=== PATIENT | female | born 1940 | race Caucasian/White ===

== ENCOUNTER 2017-05-07 15:35 | Emergency (ER) | payer MEDICARE, BC ==
[~2017-05-07] VITALS: Ht 170.2 cm; Wt 64.6 kg
[~2017-05-07 15:35] MED LIST: ALBUTEROL2.5 MG/3 M INH; AMLODIPINE BESY10 MG; AMLODIPINE BESY10 MG PO; BROVANA15 MCG/2 M INH; CALCIUM CARB 51 EACH PO; CARVEDILOL25 MG PO; CARVEDILOL6.25 MG PO; COZAAR50 MG PO; CYCLOBENZAPRINE10 MG PO; DUONEB 0.5 MG-33 ML IH; DUONEB 0.5 MG-33 ML INH; FERROUSUL325 MG PO; FLUOXETINE HCL20 MG PO; FUROSEMIDE40 MG PO; GLUCOPHAGE1000 MG PO; GLUCOPHAGE500 MG PO; HUMALOG100 UNIT/2 SUB-Q; HYDROCHLOROTHIA25 MG PO; HYDROCODON-ACE1 EA10 PO; KEPPRA1000 MG; KEPPRA750 MG PO; LANTUS SOL100 UNIT/1 SQ; LANTUS SOL100 UNIT/1 SUB-Q; LASIX80 MG PO; LEVAQUIN500 MG PO; LEVETIRACETAM1000 MG PO; LEVETIRACETAM750 MG PO; LIPITOR40 MG PO; LISINOPRIL20 MG PO; MAGNESIUM250 M1 PO; MAGNESIUM400 MG PO; MAGOX 400400 MG; METFORMIN HCL1000 MG PO; METOLAZONE10 MG PO; MORPHINE SULFAT15 M1 PO; NABUMETONE750 MG; NABUMETONE750 MG PO; NICOTINE PATCH1 EACH TD; NORCO 5-325 TA1 EACH PO; OMEPRAZOLE20 MG PO; OXYCODONE-ACET1 EAC1 PO; PERCOCET 5-3251 EACH PO; PREDNISONE10 MG PO; PREDNISONE20 MG PO; PROAIR HFA8.5 GM INH; PROMETHAZI6.25 MG/5 PO; PROMETHAZINE HC25 M1 PO; PULMICORT FLE180 MCG INH; PULMICORT0.5 MG/2 M INH; QVAR7.3 G1 IH; QVAR7.3 G1 INH; REQUIP0.25 MG PO; REQUIP1 MG PO; ROPINIROLE HCL1 MG PO; ROPINIROLE HCL5 MG PO; SPIRIVA18 MCG INH; VENTOLIN HFA18 GM INH; VITAMIN C500 M1 PO; VITAMIN D1000 UNI1 PO; VITAMIN D350000 UNIT PO; ZESTORETIC 20-251 EA; ZOCOR80 MG PO; ZOLPIDEM TARTRAT5 MG PO
[2017-05-07] MEDS ORDERED: METHYLPREDNISOLO4 M1 PO (17:20)
[2017-05-07] MEDS ORDERED: KEFLEX500 MG PO (17:20)
== END 2017-05-07 17:41 | disposition home or self-care (01) ==
LOC: ED 15:35
DX: R91.8 Other nonspecific abnormal finding of lung field (principal); J44.9 Chronic obstructive pulmonary disease, unspecified; E11.9 Type 2 diabetes mellitus without complications; F17.200 Nicotine dependence, unspecified, uncomplicated; Z90.49 Acquired absence of other specified parts of digestive tract; Z88.8 Allergy status to other drugs, medicaments and biological substances; Z88.0 Allergy status to penicillin; Z88.2 Allergy status to sulfonamides; Z88.5 Allergy status to narcotic agent; Z79.899 Other long term (current) drug therapy; Z79.84 Long term (current) use of oral hypoglycemic drugs; Z79.52 Long term (current) use of systemic steroids; Z79.891 Long term (current) use of opiate analgesic
CPT/HCPCS: 71101; 99283

== ENCOUNTER 2017-05-16 09:18 | Inpatient (IN) | payer MEDICARE, BC ==
[~2017-05-16] VITALS: Ht 170.2 cm; Wt 57.1 kg
[~2017-05-16 09:18] MED LIST changes: +KEFLEX500 MG PO; +METHYLPREDNISOLO4 M1 PO
--- NOTE | 2017-05-16 11:58 | NUR ---
RN CLINTON REQUESTED MY ASSISTANCE, RETREIVED SOME JUICE FOR PT. SHE THANKED ME AND HER CAME IN RM, WE SHOOK HANDS. PT IS ALERT, AND DISAPPOINTED THAT SHE IS HERE AGAIN. GOOD VISIT, PT REQUESTED PRAYER. WILL FOLLOW NEEDED
--- NOTE | 2017-05-16 12:09 | NUR ---
PT HERE FROM ER, PT ALERT AND ORIENTED X4. PT DENIES PAIN, NAUSEA, AND SOB AT THIS TIME. PT ABLE TO ANSWER ALL QUESTIONS. PT TRANSFERS FROM GURNEY TO BED BY STAND AND PIVOT, WITH STAND BY ASSIST FROM NURSING STAFF. IV SITES INTACT, NO REDNESS OR SWELLING NOTED, PT DENIES PAIN AT EITHER SITE, BOTH SITES FLUSH EASILY. LAB IN ROOM TO DRAW BLOOD.
--- NOTE | 2017-05-16 12:55 | NUR ---
AT THE BEDSIDE.
--- NOTE | 2017-05-16 13:49 | NUR ---
CARDIZEM DRIP STARTED AT THIS TIME AT 5MG/HOUR PER DR. ORDERS.
--- NOTE | 2017-05-16 14:05 | NUR ---
PT SPOUSE AT THE BEDSIDE.
--- NOTE | 2017-05-16 14:30 | NUR ---
JEWELRY REPAIRER IN ROOM TAKING ULTRASOUND OF PT LEGS TO RULE OUT DVT.
--- NOTE | 2017-05-16 15:20 | NUR ---
PT UP AMBULATED TO TOILET WITH ONE PERSON STANDBY ASSIST. PT ABLE TO VOID 300 ML CONCENTRATED ANJU URINE. AMBULATED BACK TO BED. PT DENIES PAIN, NAUSEA, AND SOB AT THIS TIME.
--- NOTE | 2017-05-16 15:30 | NUR ---
Traackr TECH IN THE ROOM TAKING ECHO IMAGES AT THIS TIME.
--- NOTE | 2017-05-16 16:07 | NUR ---
PT LAYING IN BED LOOKING A MENU. PT HAS BEEN CALM, ALERT AND ORIENTED X4. PT DENIES PAIN, NAUSEA, AND SOB AT THIS TIME. PT HR REMAINS LABILE 110'S-130'S, PT DENIES FEELING DIZZY. BOTH IV SITES INTACT, NO REDNESS OR SWELLING NOTED, IV SITES FLUSH EASILY, PT DENIES PAIN AT EITHER SITE.
--- NOTE | 2017-05-16 17:09 | NUR ---
PT CONVERTED TO SINUS RHYTHM, DILTIAZEM DRIP TURNED OFF.
--- NOTE | 2017-05-16 17:17 | EKG ---
[facility] [address] [place] [address] Signed Atrial flutter with variable AV block Left axis deviation Nonspecific ST abnormality Abnormal ECG When compared with ECG of 25-FEB-2017 06:17, Atrial flutter has replaced Sinus rhythm QRS axis shifted left Confirmed by ELDON PATTON MD ([id number]) on 05/16/2017 5:17:43 PM Electronically Signed By: ELDON PATTON MD 05/16/17 1717 PATIENT NAME: BROOKLYNNDOROTEOSHANNON M Electrocardiogram DATE OF : 42 PHYSICIAN: ELDON PATTON MD REPORT #: [id number] REPORT IS CONFIDENTIAL AND NOT TO BE RELEASED WITHOUT AUTHORIZATION
--- NOTE | 2017-05-16 17:34 | NUR ---
CALLED FOR CAPILLARY BLOOD GLUCOSE LEVEL OF 491. GAVE VERBAL ORDER FOR 16 UNITS OF INSULIN. FOR CORRECTION.
--- NOTE | 2017-05-16 19:10 | NUR ---
BLADDER SCANNED PT FOR 297 ML, PT DENIES NEED TO VOID AT THIS TIME.
--- NOTE | 2017-05-16 20:01 | NUR ---
PT VERBALIZES PAIN 5/10, ARTHRITIC, CHRONIC, DOESN'T REQUIRE PAIN MEDICATION.
--- NOTE | 2017-05-16 20:18 | NUR ---
PT IS A/O, UP TO BR, STEADY BUT WEAK, NEEDS SBA. NO NOTED OBVIOUS MENTAL STATUS CHANGES. CARDIZED GTT OFF PER DAY SHIFT REPORT, VS WNL, DRY NON-PRODUCTIVE COUGH, FAMILY MEMBER IN ROOM HS LEFT. USES CALL LIGHT.
--- NOTE | 2017-05-16 22:05 | NUR ---
UP TO BR WITH NASAL CANNULA AT 3.5L, SPO2 DOWN TO 84%. VOIDED 100ML THEN BACK TO BED AND CPAP PLACED. SPO2 95%. HR REMAINS IN 80'S.
--- NOTE | 2017-05-16 22:40 | NUR ---
PT PREPARING TO SLEEP, ON BIPAP, O2SAT 97%, ACETAMINOPHEN EFFECTIVE, PT HAS RESTLESS PER PT, WRAPPED LEG IN WARM BLANKETS WHICH PT FINDS COMFORTING. PLANNING TO ASK TO BRING MEDS IN A.M.
--- NOTE | 2017-05-17 00:57 | NUR ---
PT ON 3.5 LPM NC, RT VISITED PT RECENTLY AND PT DIDN'T WANT BIPAP. A/O X4, DECREASED STIMULATION IN ROOM TO FACILITATE SLEEP. VS WNL, HR 70-80'S. AFEBRILE, PERFUSION WNL, USES CALL LIGHT, UP TO BR X3 VOID IN TOILET COLLECTION DEVICE. IVF INFUSING. LUNGS DIMINISHED.
--- NOTE | 2017-05-17 02:51 | NUR ---
PT ON NC, AWAKE AND HASN'T SLEPT MUCH, DOES NOT WANT BIPAP DUE TO MORE DIFFICULT TO SLEEP. PT TAKES A MEDICATION AT HOME FOR RESTLESS LEGS WHICH HER WILL BRING IN A.M. PER PT. NO ACUTE DISTRESS, BED ALARM DUE TO GETTING OOB WITH NUMEROUS CORDS.
--- NOTE | 2017-05-17 03:40 | NUR ---
PT OOB STANDING NUMEROUS TIMES, ATTEMPTS TO SLEEP, BED ALARM ON.
--- NOTE | 2017-05-17 05:53 | NUR ---
PT IN BED, CALL LIGHT IN REACH, DOES NOT USE THE CALL LIGHT ALL THE TIME, BED ALARM ON, NO ACUTE DISTRESS. VS WNL. DENIES PAIN.
--- NOTE | 2017-05-17 07:30 | NUR ---
PT AWAKE AND ALERT X2 THIS MORNING. PT KNOWS THE DATE AND HER NAME AND WHERE SHE IS. IS DISORIENTED TO WHAT SHE IS SUPPOST TO DO. REASURED PT THAT SHE NEEDS TO REST. PT BACK TO BED. CALL AND TALKED WITH HER ON THE PHONE, PT ABLE TO RELAX. BREAKFAST ORDERED FOR PT.
--- NOTE | 2017-05-17 07:58 | NUR ---
PT EATING BREAKFAST SITTING UP IN BED WATCHING TV. PT DENIES PAIN, NAUSEA, AND SOB. IV SITES INTACT, NO REDNESS OR SWELLING NOTED, BOTH SITES FLUSH EASILY, PT DENIES PAIN AT BOTH SITES. LUNGS SOUNDS EX WHEEZE NOTED IN RT LOBE, COARSE SOUNDS IN UPPER LOBES BILAT, FINE CRACKLES NOTED IN BILAT LOW LOBES.
--- NOTE | 2017-05-17 08:50 | NUR ---
SHAMPOO CAP APPLIED TO PT. WARM SOAPY WASH CLOTHS GIVEN TO PT TO WASH FACE, ARMS, UNDERARMS, AND CHEST. WASHED PT BACK AND LEGS. LOTION APPLIED TO ARMS AND LEGS. PT ABLE TO BRUSH HER OWN TEETH. GOWN CHANGED. PT CARMELITA WELL.
--- NOTE | 2017-05-17 09:15 | NUR ---
IV SITE IN RT AC DC'D DUE TO LEAKING. PT CARMELITA WELL, TIP OF CATH INTACT, PT DENIES PAIN AT SITE.
[2017-05-17] MEDS ORDERED: NORTRIPTYLINE H25 MG PO (09:31)
[2017-05-17] MEDS ORDERED: ROPINIROLE HCL1 MG PO (09:54)
[2017-05-17] MEDS ORDERED: REQUIP1 MG PO (09:58)
--- NOTE | 2017-05-17 10:27 | NUR ---
pt standing at bedside, states "is there a diswasher in this room, I need to do the dishes". reoriented pt to being in the hospital, pt reorients easily. pt back to bed with legs elevated, call light within reach, bed alarm is on.
--- NOTE | 2017-05-17 10:45 | NUR ---
pt up standing at the bedside again with bedalarm going off. pt states "I don't know, I think I need to go to the bathroom" pt up to commode. pt voided then got back to bed with assistance.
--- NOTE | 2017-05-17 11:40 | NUR ---
IV SITE INTACT, NO REDNESS OR SWELLING NOTED, PT DENIES PAIN WITH FLUSH.
--- NOTE | 2017-05-17 11:55 | NUR ---
RESP THERAPY IN THE ROOM WITH PT DOING PHYSIO THERAPY.
--- NOTE | 2017-05-17 12:55 | NUR ---
PT SITTING UP AT THE BEDSIDE EATING LUNCH. 5 UNITS INSULIN GIVEN FOR CBG OF 195.
--- NOTE | 2017-05-17 13:16 | NUR ---
NICHO FROM PHARMACY IN TO DISCUSS REQUIP MEDICATION WITH PT FROM PT PHARMACY RECORDS.
--- NOTE | 2017-05-17 13:18 | NUR ---
MED REC COMPLETE WITH MEDICATION REFILL LIST AND PATIENT INTERVIEW.
--- NOTE | 2017-05-17 13:41 | NUR ---
PT RESTING IN BED, KATE RIVERA HAD JUST REPOSITIONED HER AND HELPED HER RELAX SOME. PT EXPECTS TO BE HERE A FEW DAYS SHE SAID. SHE IS VERY PLEASANT, HER HAD BEEN BY TO CHECK ON HER AND SON IS TO BE BY SOON. PT MENTIONED THAT SHE DIDNOT SLEEP WELL, HOPES TO NAP TODAY. REQUESTED PRAYER, WILL CONTINUE TO FOLLOW
--- NOTE | 2017-05-17 14:10 | NUR ---
PT AMBULATED IN HALLS DOWN TO MED/SURG NURSES STATION. PT HAD FRONT WHEEL WALKER AND PORTABLE 02 AT 3L VIA NC. PT THEN BACK TO BED STATES "THAT WAS A GOOD WALK, MY LEGS ARE TIRED". PT TALKED ON THE PHONE WITH HER . PT SHOWED NO SIGNS OF SOB DURING AMBULATION.
--- NOTE | 2017-05-17 14:33 | NUR ---
PT STANDING IN ROOM WITH BED ALARM GOING OFF, PT STATES SHE IS IN HER KITCHEN LOOKING FOR GRAPES IN THE REFRIDGERATOR. PT ASSISTED BACK TO BED. ATTEMPT TO REORIENT. BEDALARM BACK ON.
--- NOTE | 2017-05-17 15:55 | NUR ---
IV SITE INTACT, NO REDNESS OR SWELLING NOTED, PT DENIES PAIN WITH FLUSH. PT CONFUSION IS SLOWLY INCREASING THIS AFTERNOON. TAKES MORE TIME TO REORIENT PT TO PLACE, EVENT, AND PEOPLE. PT IS POLITE AND COOPERATIVE, REPORTS INCREASED ANXIETY WITH CONFUSION. PT VITALS WNL.
--- NOTE | 2017-05-17 16:40 | NUR ---
PT STATES SHE WANTS TO GET OUT OF THE BED SO SHE CAN CLEAN THE KITCHEN AND GET DINNER JUANITO
--- NOTE | 2017-05-17 17:31 | NUR ---
pt is calling out for her Gregg. asks "where is he?" "why is he not here". reoriented pt to place, event, and care plan. pt able to stay oriented for shorter and shorter amount of time.
--- NOTE | 2017-05-17 17:40 | NUR ---
PT STATES "I JUST DON'T FEEL WELL", PT GIVEN 650 MG PO TYLENOL FOR GENERALIZED DISCOMFORT.
--- NOTE | 2017-05-17 17:50 | NUR ---
SPOUSE OF PT, LYDIA, REQUESTED TO NOT ALLOW PT TO CALL HIM TONIGHT, DUE TO REPEATED CALLS THIS AFTERNOON. PT CALLED HER APPROXIMATLY 5 TIMES OVER A 2 HOUR PERIOD BETWEEN [phone].
--- NOTE | 2017-05-17 18:06 | NUR ---
PT SPOUSE, LYDIA, IS NOW SITTING IN THE ROOM WITH THE PT.
--- NOTE | 2017-05-17 20:33 | NUR ---
AT SHIFT CHANGE PT REQUESTING TO GET OOB TO GET POPCORN "IT'S JUST OVER THERE". POINTS TO BR. EXPLAINED TO PATIENT THAT SHE IS IN THE HOSPITAL. UNABLE TO RE-ORIENT PT. WALKED PT TO DOOR OF ROOM AND SHOWED HALLWAY. INSISTENT THAT KITCHEN "JUST OUT THERE" POINTS OUT THE HOSPITAL WINDOW. PT DID AGREE TO GET BACK TO BED. PLACED BED ALARM ON PT. PT WITH NON-PRODUCTIVE LOOSE COUGH. REFUSES TO WEAR BIPAP. 02 ON 2L. REMINDED AND INSTRUCTED PT TO USE CALL LIGHT.
--- NOTE | 2017-05-17 20:57 | NUR ---
PT REMAINS CONFUSED. STATES "WHERE'S THE PHONE, I HEAR IT RINGING". TRYING TO GET OUT OF BED WITHOUT CALLING. UPDATED DR PATTON.
--- NOTE | 2017-05-17 21:02 | NUR ---
PT GIVEN 12.5MG SEROQUEL PO. PLACED PT ON BIPAP.
--- NOTE | 2017-05-17 21:45 | NUR ---
PT PULLED BIPAP OFF. PLACED ON 2L O2.
--- NOTE | 2017-05-17 22:30 | NUR ---
PT TRYING TO GET OOB. REQUESTING TO GO TO THE KITCHEN. BEGAN FIXING SHEETS AND BLANKETS ON BED. NOT RE-ORIENTABLE. PT AGREED TO GET BACK IN BED. RELUCTANTLY AGREED TO WEAR CPAP AGAIN. BED ALARM ON.
--- NOTE | 2017-05-17 23:12 | NUR ---
PT REMOVED BIPAP. GETS UP OOB REQUESTING HER CIGARETTES AND BILINGUAL SALES REPRESENTATIVE. ATTEMPTED TO REORIENT. PLACED ON NC 2L 02. REQUESTED 'LIVING ROOM' LIGHTS TO BE TURNED OFF. DIMMED NURSES STATION LIGHTS AND HALLWAY LIGHTS TO MAX LEVEL. PT BACK TO BED. VS TAKEN. BED ALARM ON.
--- NOTE | 2017-05-18 00:10 | NUR ---
PT OOB TO BR. VOIDED ONE MISSED VOID. REMAINS CONFUSED TO SITUATION/PLACE. ASSISTED BACK TO BED, BED ALARM ON.
--- NOTE | 2017-05-18 01:24 | NUR ---
PT GETTING OUT OF BED WITHOUT ASSISTANCE. AMBULATED TO BR TO VOID. BACK TO BED WITH BED ALARM ON.
--- NOTE | 2017-05-18 01:36 | NUR ---
PT UP TO BR, DOES NOT REMEMBER WHY, REFUSES TO WEAR BIPAP. 02 ON 3.5L NC PER RT.
--- NOTE | 2017-05-18 04:32 | NUR ---
PT SLEPT UNTIL NOW. GOT OOB TO BR TO VOID. BACK TO BED. NO NEEDS. SLEEPY, BUT IMPROVED DEMEANOR. REMAINS UNSTEADY ON FEET. BED ALARM ON.
--- NOTE | 2017-05-18 06:24 | NUR ---
PT REMAINS ASLEEP. LABS HELD AT THIS TIME.
--- NOTE | 2017-05-18 08:15 | NUR ---
IS AWAKE AND ALERT. ACCUCHECK 46, DR. PATTON AWARE. ORANGE JUICE GIVEN. ASSESSMENT DONE. TALKED WITH PATIENT ABOUT PLAN OF CARE FOR DAY, IS UNDERSTANDING. HAS LOOSE COUGH.
--- NOTE | 2017-05-18 09:00 | NUR ---
SITTING UP IN BED EATING BREAKFAST.
--- NOTE | 2017-05-18 10:59 | NUR ---
TOOKBREAKFAST WELL. AMBULATED TO BR WITH ASSIST, VOIDED SMALL AMOUNT URINE. SPONGE BATH GIVEN WHILE UP. BACK TO BED WITHOUT INCIDENT. IN ROOM.
--- NOTE | 2017-05-18 15:00 | NUR ---
RESTING. IS WITHOUT R/O OR C/O AT THIS TIME.
--- NOTE | 2017-05-18 15:44 | NUR ---
used walker to ambulated in hallway WITH ASSIST. TOLERATED WELL. DENIES SHORTNESS OF BREATH.
--- NOTE | 2017-05-18 16:10 | NUR ---
ASSESSMENT DONE. NO CHANGES. ENC USE OF I.S.
--- NOTE | 2017-05-18 17:29 | NUR ---
SITTING UP EATING DINNER.
--- NOTE | 2017-05-18 18:19 | NUR ---
C/O RESTESS LEGS. REQUESTING MEDICATION FOR THIS. TOLD PATIENT THE MEDICATION WAS DISCONTINUED. AMBULATED IN HALLWAY WITH O2, WALKER, NURSE WITH PATIENT. TOLERATED AMBULATION WELL. STATES THIS HELPED RESTLESS LEGS. IN ROOM.
--- NOTE | 2017-05-18 18:29 | NUR ---
C/O OF RESTLESS LEGS. ASKING ME TO CALL MD FOR MEDICATION. MD NOTIFIED. MD TO ORDER GABAPENTIN.
--- NOTE | 2017-05-18 18:50 | NUR ---
UP TO BR TO VOID. STATES SHE DOES NOT FEEL RIGHT. BP-129/57. ACCUCHECK-327. TYLENOL 650 MG PO, GABAPENTIN 100 MG IV GIVEN.
--- NOTE | 2017-05-18 19:07 | NUR ---
REPORT TO NEXT SHIFT.
--- NOTE | 2017-05-18 19:36 | NUR ---
REPORT RECIEVED FROM DAYSHIFT RN. PT UP AMBULATING IN ROOM FOR RESTLESS LEGS. HELPED PT RELAX AFTER. PT ALERT AND ORIENTED. DOES NOT RECALL EVENTS OF LAST NIGHT. ASSISTED BACK TO BED. BED ALARM ON FOR SAFETY.
--- NOTE | 2017-05-18 22:50 | NUR ---
PT UNABLE TO SLEEP. REQUESTING MEDICATION TO HELP. DR PATTON NOTIFIED. 1MG MELATONIN GIVEN PO. PT REMAINS ALERT AND ORIENTED.
--- NOTE | 2017-05-18 23:56 | NUR ---
PT STILL UNABLE TO SLEEP. ASSESSMENT COMPLETED. OFFERED PUDDING.
--- NOTE | 2017-05-19 02:20 | NUR ---
PT UP TO BR TO VOID. USED CALL LIGHT FOR ASSISTANCE. REMAINS ORIENTED. REPORTS STILL NOT SLEEPING, HOWEVER.
--- NOTE | 2017-05-19 04:30 | NUR ---
PT ASLEEP. O2 ON. NO S/S OF DISTRESS.
--- NOTE | 2017-05-19 06:49 | NUR ---
PT UP WITH FWW TO VOID. NO OTHER NEEDS. USING CALL LIGHT APPROPRIATELY.
--- NOTE | 2017-05-19 08:30 | NUR ---
AWAKE ASSESSMENT DONE. DENIES PAIN. STATES SLEPT VERY POOR. ASKING ABOUT WHEN SHE WILL BE ABLE TO GO HOME. HAS LOOSE NON-PRODUCTIVE COUGH. ROUTINE MEDS GIVEN. SITTING UP IN BED FOR BREAKFAST. ACCUCHECK THIS AM-180. NOVOLOG 5 UNITS SQ GIVEN.
--- NOTE | 2017-05-19 09:30 | NUR ---
DR. PATTON HERE TO SEE PATIENT. ORDERS RECIEVED. PATIENT IS W/O C/O.
--- NOTE | 2017-05-19 10:52 | NUR ---
UP TO BR FREQUENTLY. IS STABLE ON FEET.
--- NOTE | 2017-05-19 12:00 | NUR ---
ASSESSMENT UNCHANGED. AMBULATED IN HALLWAY WITH PHYS THERAPY. WILL BE TRANSFERRED TO MEDICAL FLOOR THIS AFTERNOON.
--- NOTE | 2017-05-19 14:40 | NUR ---
REPORT TO MED-SURG.
--- NOTE | 2017-05-19 14:46 | NUR ---
TO MED-SURG VIA CHAIR.
--- NOTE | 2017-05-19 15:07 | NUR ---
PT TRANSFERED FROM CCU TO ROOM 121 VIA RECLINER, ACCOMPANIED BY LEYDI Rhodes, NURSING VP DIRECTOR OF CREATIVE STRATEGY. ARRIVED TO ROOM 121 AT 1443. PT ALERT, ORIENTED TO SELF, DISORIENTED TO DATE, NAME OF CITY, NAME OF HOSPITAL. REORIENTED PT TO DATE, CITY, AND HOSPITAL. ORIENTED PT TO ROOM, AND FLOOR. PT REQUESTED TO GET INTO BED FROM RECLINER, ASSISTED PT TO TRANSFER WITH 1 PERSON ASSIST. PT DENIED PAIN, DENIED NAUSEA. IS CURRENTLY WATCHING TV.
--- NOTE | 2017-05-19 16:38 | NUR ---
NOTIFIED DR. PATTON THAT PT'S BG IS 397 VIA TELEPHONE, DR. PATTON VERBALIZED AWARENESS. NO NEW ORDERS AT THIS TIME.
--- NOTE | 2017-05-19 18:16 | NUR ---
PT TRANSFERED FROM CCU TO ROOM 121 THIS AFTERNOON. PT IS ALERT, ORIENTED TO SELF, ORIENTED TO SURROUNDINGS AND EVENTS. DISORIENTED TO CITY, NAME OF HOSPITAL. CALLS APROPRIATELY. IS ON 3.5L O VIA NC, WHICH IS HER BASELINE LEVEL OF OXYGEN AT HOME. IS ON A 2000 ML FLUID RESTRICTION. APETITE GOOD. PER [facility] RN REPORT, PT HAD 2 BMs THIS SHIFT PRIOR TO TRANSFER TO FLOOR. PT IS SALINE LOCKED. STARTING COUMADIN THIS EVENING. IS ON TELE # 7, IN NSR, WITH SOME PACs. HAS 1+ TO 2+ EDEMA TO LOWER LEGS AND FEET. 1 PERSON ASSIST WITH TRANSFERS. HAS DENIED PAIN OR DISCOMFORT.
--- NOTE | 2017-05-19 19:15 | NUR ---
RECEIVED REPORT FROM DAY SHIFT RN. PATIENT IS RESTING IN BED WATCHING TV. PATIENT DENIES ANY NEEDS AT THIS TIME. CALL LIGHT IN REACH.
--- NOTE | 2017-05-19 20:30 | NUR ---
PATIENT ASSISTED TO THE RESTROOM. PATIENT IS SBA. PATIENT IS BACK IN BED RESTING. BED ALARM IS ON FOR SAFETY PATIENT IS FORGETFUL AT TIMES. CALL LIGHT IN REACH.
--- NOTE | 2017-05-19 22:23 | NUR ---
PATIENT ASSESMENT COMPLETED. PATIENT DENIES ANY PAIN. PATIENT DENIES ANY SOB. PATIENT IS ON 3.5L VIA NC THIS IS CHRONIC FOR THE PATIENT. PATIENT IS SL AND IV FLUSHES WELL. PATIENT IS ON TELE #7, IRREGULAR RHYTHM, HR 69. PATIENT REFUSES TO WEAR CPAP. PATIENT DENIES ANY FURTHER NEEDS AT THIS TIME. CALL LIGHT IN REACH.
--- NOTE | 2017-05-19 23:28 | NUR ---
PATIENTS BED ALARM ALERTED STAFF THAT PATIENT WAS EXITING THE BED. WHEN THE ROOM WAS ENTERED PATIENT REQUESTED COOKIES FROM THE [facility]. PATIENT REPORIENTED TO SURROUNDINGS AND EVENT. PATIENT WAS EASILY REORINETED. PATIENT DENIES ANY NEEDS. PATIENT ASSISTED BACK INTO BED. PATIENT STATED " I JUST CANT SLEEP" PATIENT OFFERED INTERVENTIONS. PATIENT DENIED ALL INTERVENTIONS SUCJ TEA, WARM BLANKET... PATIENT STATED "I AM JUST GONNA WATCH TV" PATIENT DENIES ANY FURTHER NEEDS. PATIENTS CALL LIGHT IN REACH. BED ALARM PLACED BACK ON FOR SAFETY.
--- NOTE | 2017-05-20 00:10 | NUR ---
PATIENTS BED ALARM ALERTED STAFF THAT PATIENT WAS EXITING THE BED. PATIENT IS TRYING TO GET UP. PATIENT GIVEN FWW. PATIENT TRYING TO LEAVE ROOM TO "FIND THE BREAD BOX" PATIENT IS CONFUSED. PATIENT REORIENTED TO SURROUNDINGS AND EVENT. PATIENT IS NOW GETTING BACK INTO BED. PATIENT DENIES ANY NEEDS. PATIENTS BED ALARM PACED ON FOR SAFETY. CALL LIGHT IN REACH.
--- NOTE | 2017-05-20 01:22 | NUR ---
PATIENT IS RESTING INBED WITH EYES CLOSED, RR 17. TELE $7 HR 66
--- NOTE | 2017-05-20 02:49 | NUR ---
PATIENT HAS A DRY COUGH. PATIENT GIVEN SIPS OF WATER. PATIENT DENIES ANY NEEDS AT THIS TIME. CALL LIGHT IN REACH. AND BED ALARM IS ON FOR SAFETY.
--- NOTE | 2017-05-20 04:23 | NUR ---
PATIENT IS RESTING IN BED WITH EYES CLOSED. PATIENT REMAINS ON TELE #9, IRREGULAR RHYTHM, HR IN THE 80'S.
--- NOTE | 2017-05-20 05:57 | NUR ---
PATIENT RESTED WELL FOR THE MAJORITY OF THE SHIFT. PATIENT IS ON A CARDIAC DIET W/2000 ML FLUID RESTRICTION. PATIENT IS TOLERATING DIET WELL. PATIENT IS A SBA W/FWW AND DOES WELL WITH AMBULATION. PATIENT IS SL AND IV FLUSHES WELL. PATIENT IS ON TELE #7, IRREGULAR RHYTHM, HR IN THE 70'S. PATIENT IS ON 3.5L VIA NC. PATIENT REFUSED CPAP. PATIENT IS CONFUSED AT TIMES AND REQUIRES REORIENTATION. PATIENTS BED ALARM HAS REMAINED ON FOR SAFETY. PATIENT USES CALL LIGHT RARELY.
--- NOTE | 2017-05-20 06:44 | NUR ---
PATIENT ASSISTED TO THE RESTROOM. PATIENT IS A SBA W/FWW. PATIENTTOELRATED AMBUALTION WELL. PATIENT IS NOW BACK IN BED RESTING. BED ALARM IS ON FOR SAFETY. PATIENT REMAINS ON TELE #7. PATIENT DENIES ANY NEEDS AT THIS TIME. VITALS AND DAILY WEIGHTS TAKEN AND RECORDED. CALL LIGHT IN REACH.
--- NOTE | 2017-05-20 07:48 | NUR ---
PT ASLEEP UPON ENTERING ROOM. AWOKE EASILY TO VOICE. DENIES PAIN, NAUSEA, OR DIFFICULTY BREATHING. ALERT AND ORIENTED THIS AM. SL FLUSHES WELL. PT ON 3LNC SATTING 93%. ON TELE #7 CURRENTLY IN SR, HR 66. CALL LIGHT WITHIN REACH.
--- NOTE | 2017-05-20 07:55 | NUR ---
PATIENT SITTING UP IN BED WHILE GETTING A NEB TREATMENT. BREAKFAST HAS BEEN ORDERED. NO OTHER NEEDS AT THIS TIME.
--- NOTE | 2017-05-20 08:50 | NUR ---
PT SITTING UP AT EDGE OF BED EATING BREAKFAST. DENIES NEEDS OR CONCERNS AT THIS TIME. CALL LIGHT WITHIN REACH.
--- NOTE | 2017-05-20 09:59 | NUR ---
PATIENT REFUSED SHOWER AT THIS TIME. SANTHOSH AND ORAL CARE DONE. CHANGED UNDERWEAR AND LINENS. CALL BUTTON IN REACH NO OTHER NEEDS AT THIS TIME
--- NOTE | 2017-05-20 12:57 | NUR ---
PT ATE ALL OF LUNCH, CARMELITA WELL. DENIES NEEDS OR CONCERNS AT THIS . CALL LIGHT WITHIN REACH.
--- NOTE | 2017-05-20 14:39 | NUR ---
PT CALLED FOR ASSISTANCE TO RESTROOM. SBA WITH WALKER. BACK TO BED WITH MINIMAL ASSIST. CALL LIGHT WITHIN REACH. VS TAKEN, STABLE. SITTING UP IN BED AWAKE. NO APPARENT DISTRESS.
--- NOTE | 2017-05-20 15:00 | NUR ---
PATIENT STILL REFUSED SHOWER.
--- NOTE | 2017-05-20 16:38 | NUR ---
PT RESTING IN BED WATCHING TV. HAD COUGHING FIT, SOUNDED MOIST. PT DENIED ANY SPUTUM PRODUCTION. SCHEDULED BLOOD GLUCOSE CHECK COMPLETED. CALL LIGHT WITHIN REACH.
--- NOTE | 2017-05-20 19:33 | NUR ---
PT ASSESSMENT COMPLETE. PT DENIES ANY PAIN, N/V, SOB. PT ON 3.5 LPM O2 VIA NASAL CANNULA-CHRONIC. PT UP TO BATHROOM WITH SBA, TOLERATES AMBULATION WELL. PT VOIDING WITHOUT DIFFICULTY. PT HAS +1-2 EDEMA TO LEFT LOWER EXTREMITY, TRACE EDEMA TO RIGHT, PT STATES THIS IS NORMAL. PT NOW RESTING IN BED. BED ALARM IN PLACE. CALL LIGHT WITHIN REACH. PT DENIES ANY FURTHER NEEDS AT THIS TIME.
--- NOTE | 2017-05-20 22:30 | NUR ---
PT UP SEVERAL TIMES OVER LAST COUPLE HOURS, PT CONFUSED BUT EASILY REORIENTED. BED ALARM GOES OFF PT DOES NOT USE CALL LIGHT WHEN GETTING OUT BED, RE-EDUCATED PT. PT STATES FEELING "FIDGETY" AND RESTLESS. PT AMBULATED TO BATHROOM, VOIDING WELL. PT BACK IN BED. BED ALARM IN PLACE. CALL LIGHT WITHIN REACH. PT DENIES ANY FURTHER NEEDS AT THIS TIME.
--- NOTE | 2017-05-21 01:34 | NUR ---
PT SLEEPING, RR EVEN AND UNLABORED. PT APPEARS COMFORTABLE AT THIS TIME. BED ALARM IN PLACE. PT ON 3.5 LPM O2 VIA NASAL CANNULA. CALL LIGHT WITHIN REACH.
--- NOTE | 2017-05-21 03:05 | NUR ---
PT RESTING IN BED WITH EYES CLOSED. RESPIRATIONS EVEN AND UNLABORED. PT APPEARS TO BE SLEEPING. PT NOT DISTURBED FOR 0200 ASSESSMENT.
--- NOTE | 2017-05-21 04:49 | NUR ---
PT UP TO USE THE BATHROOM, OUT OF BED WITHOUT ASSISTANCE. PT REMAINS IMPULSIVE. BEDALARM IN PLACE. PT DENIES PAIN OR SOB. STATES THAT SHE IS THIRSTY. JUICE PROVIDED. STANDING DAILY WEIGHT OBTAINED. PT DENIES OTHER NEEDS. CALL LIGHT WITHIN REACH.
--- NOTE | 2017-05-21 06:13 | NUR ---
PT RESTING WELL THIS SHIFT. PT REMAINS CONFUSED AT TIMES, IMPULSIVE, BED ALARM IN PLACE. O2 @ 3.5 LPM. CARDIAC DIET, 2000 ML FLUID RESTRICTION. SBA WITH FWW. IV SL.
--- NOTE | 2017-05-21 07:42 | NUR ---
BEDSIDE REPORT. PT A/O X4, SHE REPORTS NO COMPLAINTS, PT REPORTS THAT THE PLAN FOR THE DAY IS TO DISCHARGE HOME.
--- NOTE | 2017-05-21 10:13 | NUR ---
PT UP AMBULATING IN [place] AT THIS TIME WITH STAFF
[2017-05-21] MEDS ORDERED: NICOTINE PATCH1 EA TD (11:57)
[2017-05-21] MEDS ORDERED: NICORETTE4 M2 BUCCAL (11:57)
[2017-05-21] MEDS ORDERED: WARFARIN SODIU2.5 MG PO (11:58)
[2017-05-21] MEDS ORDERED: DILTIAZEM 24HR120 MG PO (12:00)
[2017-05-21] MEDS ORDERED: TOPROL XL200 MG PO (12:00)
[2017-05-21] MEDS ORDERED: GLIPIZIDE5 MG PO ×2 (12:01→12:10)
[2017-05-21] MEDS ORDERED: POTASSIUM CHLO20 ME2 PO (12:02)
[2017-05-21] MEDS ORDERED: PULMICORT0.5 MG/2 M INH (12:04)
[2017-05-21] MEDS ORDERED: BROVANA15 MCG/2 M INH (12:04)
--- NOTE | 2017-05-21 13:20 | NUR ---
DISCHARGE EDUCATIONS PROVIDED TO PT AND PT SPOUSE IN REGARDS TO MEDICATION NEXT DOSE LAST DOSE. NEW MEDICATIONS. NICHO FROM PHARMACY INTO SEE PT NOW FOR MEDICATIONS COUNCELING. ALSO INFORMATION AND CHART FOR PT TO TRACK DAILY WEIGHT AND V/S. FOLLOW UP APPOINTMENT AND TO HAVE BLOOD DRAWN IN AM OF THAT DAY TO TRACK COUMADIN. SIGNS AND SYMPTOMS TO WATCH FOR AND MONITOR AND WHEN TO SEEK MEDICAL ATTENTION. DIET EDCUATION, ADA AND LOW SALT, MONITORING WATER/FLUID INTAKE DAILY. I.V. SITE REMOVED WNL TIP INTACT.
--- NOTE | 2017-05-21 14:04 | NUR ---
PT DRESSED, LAYING ON BED WAITING FOR DC. SHE WAS CHEERFUL AND THANKFUL FOR THE CARE SHE HAS RECEIVED. HER LYDIA WAS ON HIS WAY TO TAKE HER HOME. LYDIA ARRIVED, AND HAD A PLEASANT VISIT WITH BOTH. PT REQUESTED PRAYER, WILL FOLLOW NEEDED
--- NOTE | 2017-05-22 10:17 | NUR ---
FAXED CHART NOTES TO [facility] TO INCLUDE FACESHEET, ORDER, 1ST PROG NOTE (NO H AND P), DC SUMMARY, AND DC PACKET.
== END 2017-05-21 13:45 | disposition home or self-care (01) | DRG 190 ==
LOC: ED 09:18 → CCU 11:41 → MS 05-19 14:43
PROVIDERS: ADMIT Pediatrics Pediatric Critical Care Medicine
DX: J44.0 Chronic obstructive pulmonary disease with (acute) lower respiratory infection (principal); J18.9 Pneumonia, unspecified organism; G93.41 Metabolic encephalopathy; I50.33 Acute on chronic diastolic (congestive) heart failure; J96.11 Chronic respiratory failure with hypoxia; J96.12 Chronic respiratory failure with hypercapnia; I48.92 Unspecified atrial flutter; I48.0 Paroxysmal atrial fibrillation; J44.1 Chronic obstructive pulmonary disease with (acute) exacerbation; I11.0 Hypertensive heart disease with heart failure; E83.42 Hypomagnesemia; E11.65 Type 2 diabetes mellitus with hyperglycemia; G40.909 Epilepsy, unspecified, not intractable, without status epilepticus; E78.5 Hyperlipidemia, unspecified; F39 Unspecified mood [affective] disorder; F17.210 Nicotine dependence, cigarettes, uncomplicated; Z88.0 Allergy status to penicillin; Z88.2 Allergy status to sulfonamides; Z79.84 Long term (current) use of oral hypoglycemic drugs
CPT/HCPCS: 36415; 36600; 71010; 80048; 80053; 80069; 82607; 82728; 82746; 82803; 83036; 83540; 83605; 83735; 83880; 84100; 84466; 84484; 85025; 85610; 85730; 87040; 93005; 93010; 93306; 93970; 94640; 94660; 94667; 94668; 94760; 97161; J1160; J1650; J1956; J2930; J3475; J7040; J7512

== ENCOUNTER 2017-06-10 16:23 | Emergency (ER) | payer MEDICARE, BC ==
[~2017-06-10] VITALS: Ht 170.2 cm; Wt 57.1 kg
[~2017-06-10 16:23] MED LIST changes: +DILTIAZEM 24HR120 MG PO; +GLIPIZIDE5 MG PO; +NICORETTE4 M2 BUCCAL; +NICOTINE PATCH1 EA TD; +NORTRIPTYLINE H25 MG PO; +POTASSIUM CHLO20 ME2 PO; +TOPROL XL200 MG PO; +WARFARIN SODIU2.5 MG PO
[2017-06-10] MEDS ORDERED: PERCOCET 5-3251 EACH PO (16:43)
[2017-06-10] MEDS ORDERED: METHYLPREDNISOLO4 M1 PO (17:15)
[2017-06-10] MEDS ORDERED: KETOROLAC TROME10 MG PO (18:07)
== END 2017-06-10 17:37 | disposition home or self-care (01) ==
LOC: ED 16:23
DX: S72.114A Nondisplaced fracture of greater trochanter of right femur, initial encounter for closed fracture (principal); J44.9 Chronic obstructive pulmonary disease, unspecified; E11.9 Type 2 diabetes mellitus without complications; F17.200 Nicotine dependence, unspecified, uncomplicated; Z90.49 Acquired absence of other specified parts of digestive tract; Z88.0 Allergy status to penicillin; Z88.1 Allergy status to other antibiotic agents; Z88.2 Allergy status to sulfonamides; Z88.5 Allergy status to narcotic agent; Z79.2 Long term (current) use of antibiotics; Z79.84 Long term (current) use of oral hypoglycemic drugs; W19.XXXA Unspecified fall, initial encounter
CPT/HCPCS: 73502; 99283

== ENCOUNTER 2017-07-13 04:22 | Inpatient (IN) | payer MEDICARE, BC ==
[~2017-07-13] VITALS: Ht 170.2 cm; Wt 60.9 kg
[~2017-07-13 04:22] MED LIST changes: +KETOROLAC TROME10 MG PO
--- NOTE | 2017-07-13 06:40 | NUR ---
PT ARRIVED TO ROOM [address] PATTON RE: PT SPO2 DECREASING TO 79 ON 5L NC. PT CURRENTLY IN NO DISTRESS. DISCUSSED BIPAP AT THIS TIME, CURRENTLY WILL CONTINUE TO MONITOR PT. SPO2 NOW 92% VIA 4L OXYMASK.
--- NOTE | 2017-07-13 06:44 | NUR ---
PT ARRIVED FROM ER. PT ABLE TO TRANSFER TO BEDSIDE COMMODE TO URINATE, THEN TRANSFERED TO BED. PT COOPERATIVE AND POLITE. PT MILDLY CONFUSED. NOTED BILAT LOW LEGS 2+ EDEMA. PT DENIES PAIN, NAUSEA, AND SOB. PT ALERT TO SELF AND PLACE ONLY.
--- NOTE | 2017-07-13 08:10 | NUR ---
ASSESSMENT DONE. TALKED WITH PATIENT ABOUT PLAN OF CARE. OOB TO COMMODE TO VOID 500 ML OF CLEAR YELLOW URINE.
--- NOTE | 2017-07-13 08:45 | NUR ---
BED ALARM ON. PATIENT FORGETS TO USE CALL LIGHT WHEN OOB TO COMMODE. REIFORCEMENT GIVEN TO USE CALL LIGHT. BED ALARM HAS GONE OF TWICE SINCE 729.
--- NOTE | 2017-07-13 08:54 | NUR ---
SITTING UP IN BED FOR BREAKFAST. [id number].
--- NOTE | 2017-07-13 11:50 | NUR ---
UPSET ABOUT BEING IN HOSPITAL. HAS ATTEMPTED TO GET OOB OR CHAIR SEVERAL TIMES, HAVE EXPLAINED TO PATIENT MANY TIMES ABOUT CALL LIGHT. IS CONFUSED ABOUT HOW LONG HAS BEEN HOSPITALIZED. RESTLESS. DENIES SHORTNESS OF BREATH. ASSESSMENT UNCHANGED.
--- NOTE | 2017-07-13 12:00 | NUR ---
ACCUCHECK 380, DR. PATTON AWARE, NOVOLOG INSULIN 11 UNITS SQ GIVEN. REAMINS IMPULSIVE, GETTING OOB FREQUENTLY. NOT USING CALL LIGHT.
--- NOTE | 2017-07-13 15:29 | NUR ---
PT UP TO BS COMMODE VOIDED AND THEN UP TO THE CHAIR, PT WILL THEN BE TAKEN OUT TO THE NURSES STATION WITH STAFF DUE TO PT HAS USED HER CALL LIGHT Q 3 MINUTES TO SEE WHAT STAFF IS UP TO.
--- NOTE | 2017-07-13 16:50 | NUR ---
AMBULATED IN [place] ACC[facility] BY RN. O2 AT [address] DENIES SHORTNESS OF BREATH WITH EXERTION.
--- NOTE | 2017-07-13 18:30 | NUR ---
PT RECEIVED FROM CCU. REPORT OBTAINED FROM CCU RN. PT ARRIVED VIA WHEELCHAIR, ASSISTED TO BED. FAMILY AT BEDSIDE. PT ON 4L NC, O2 SATS 88-91%, CONTINUOUS PULSE OX IN PLACE. PT WITH UNPRODUCTIVE LOOSE COUGH. LUNG SOUNDS WITH COARSE CRACKLES THROUGHOUT, EXPIRATORY WHEEZE NOTED TO LEFT LOWER LOBE. PT DENIES PAIN. PT DENIES OTHER NEEDS AT THIS TIME. BED ALARM ON.
--- NOTE | 2017-07-13 19:05 | NUR ---
REPORT RECVD FROM LUCITA LOVE, IN TO SEE PT, PT AWAKE TALKING WITH FAMILY. PM MEDICATIONS REVIEWED WITH PT'S PER REQUEST. PT NOTED TO BE SLIGHTLY FORGETFUL. NO FURTHER NEEDS AT THIS TIME. BED ALARM ON, CALL LIGHT IN REACH.
--- NOTE | 2017-07-13 20:00 | NUR ---
NURSE IS AWARE RE VITAL SIGNS.
--- NOTE | 2017-07-13 20:04 | NUR ---
BLOOD SUGAR CHECKED.
--- NOTE | 2017-07-13 20:15 | NUR ---
IN TO SEE PT, ASSESSMENT COMPLETED. PT ASKING " WHERE DID RICH GO." PT NOT ORIENTED TO TIME OR PLACE. PT APPEARS VERY RESTLESS, ATTEMPTING TO GET OUT OF BED. PT REORIENTED. PM MEDICATIONS GIVEN. NO FURTHER NEEDS AT THIS TIME. CALL LIGHT IN REACH, BED ALARM ON.
--- NOTE | 2017-07-13 20:30 | NUR ---
IN TO ROOM, BED ALARM OFF. PT ATTEMPTING TO GET UP. PT ASKING "WHERE IS RICH." ATTEMPTED TO REORIENT PT TO PLACE AND TIME. PT STANDING AT BEDSIDE, VERY AGITATED. PT STATING THAT " SHE NEEDS TO GO DOWN THE [place] AND GO HOME." ATTEMPTED TO REORIENT PT. PT UPSET STATING "LET ME GO, I WANT TO GO OUT HERE." PT AGREES TO GET BACK IN BED. REQUESTING TO CALL . BED ALARM ON. CALL LIGHT IN PLACE.
--- NOTE | 2017-07-13 20:45 | NUR ---
IN TO ROOM, PT GETTING OOB. PT AGITATED STATING SHE WANTS TO TALK TO HER . ATTEMPTED TO REORIENT PT TO PLACE. PT STATES "I DON'T CARE WHERE I AM I WANT TO GO HOME." PT WALKED OUT TO RN STATION, TALKING TO STAFF. PT STATES " I WANT TO KNOW WHO OWNS THIS PLACE." AFTER SEVERAL REATTEMPTS TO REORIENT PT BY STAFF. PT AGREES TO GO BACK TO ROOM. PT ON PHONE WITH . PT APPEARS TO REORIENT. IN BED, BED ALARM ON, CALL LIGHT IN PLACE.
--- NOTE | 2017-07-13 20:53 | NUR ---
PT ATTEMPTING TO GET OUT OF BED UNASSISTED. PT DEMANDING TO KNOW HOW MANY PATIENTS ARE HERE, WHY THEY ARE HERE, ETC. STATES THAT SHE "IS THE EMPLOYER OR THIS PLACE." ATTEMPTS TO REORIENT PT TO HOSPITAL SETTING UNSUCCESSFUL. PT ASSISSTED TO THE BATHROOM, SLIGHTLY UNSTEADY ON HER FEET. PT WALKS OUT TO HALLWAY WITH SBA, LOOKING UP AND DOWN THE HALLWAY, WANTS TO KNOW "WHO IS IN THESE OFFICES?" AGAIN ATTEMPTED TO REORIENT PATIENT, UNSUCCESSFULLY. PT ASSISTED BACK TO BED, BED ALARM PLACED, PT DENIES OTHER NEEDS AT THIS TIME. CALL LIGHT WITHIN REACH.
--- NOTE | 2017-07-13 21:00 | NUR ---
IN TO PT ROOM, PT GETTING OOB. ASSISTED TO BATHROOM STANDBY ASSIST. PT UNSTEADY ON FEET. PT APPEARS AGITATED. PT STATES " I AM GOING TO LEAVE THIS PLACE. " ATTEMPTED TO DISCUSS WITH PT WHY SHE IS IN THE HOSPITAL. PT CURSE FOR BRINGING HER HERE. PT STATES " WHERE IS RICH I WANT TO KNOW WHAT HE IS DOING." PT RQUESTING TO CALL . RN ATTEMPTS TO ASSIST PT BACK TO BED FOR SAFETY. PT STATES "STOP IT! LET ME GO, I AM GOING HOME." X [employer] WIREMAN TO FLOOR, ATTEMPT TO REORIENT PT. PT AGREES TO GO BACK TO BED. BED ALARM DRILLING ENGINEER LIGHT IN PLACE.
--- NOTE | 2017-07-13 21:15 | NUR ---
PER CHARGE NURSE PT HAS BEEN ATTEMPTING TO GET OOB. ATTEMPT TO REORIENT UNSUCCESSFUL. CHARGE NURSE AND PT AT NURSES STATION. PT STATING " I WANT TO FIRE YOU ALL, THIS IS A BUNCH OF SHIT." ATTEMPTS TO REORIENT PT UNSUCCESSFUL. PT AGREES TO GO BACK TO BED. MODERN DANCER ON FLOOR, REQUEST SECURITY STAFF COME TO SIT WITH PT. PT ASSISTED BACK TO BED, BED ALARM ON. CALL LIGHT IN REACH.
--- NOTE | 2017-07-13 21:30 | NUR ---
SECURITY STAFF AND RN IN ROOM, PT AGITATED BY THE PRESENTS OF SECURITY. PT STATING "OH NOW YOU CALLED THE RACECAR DRIVER ON ME." REASSURED PT THAT SECURITY IS ONLY HERE TO KEEP PT COMPANY. PT STILL INSISTING ON GOING HOME. SEVERAL ATTEMPTS TO REORIENT PT, ALL UNSUCCESSFUL. PT REQUEST TO CALL . PHONE GIVEN. PT NOTED TO BE YELLING AT OVER TELEPHONE. PT ASKS "WILL YOU COME AND GET ME AND TAKE ME HOME." PT AGITATED WITH . PT OFF PHONE STATING THAT HER IS COMING BACK TO THE HOSPITAL TO SEE HER. PT BACK IN BED, EYES CLOSED. RN REMAINING IN ROOM AT THIS TIME.
--- NOTE | 2017-07-13 21:55 | NUR ---
RN IN ROOM ONE ON ONE, HERE TO SEE PT. PT'S SITTING AT BEDSIDE ATTEMPTING TO REORIENT PT. PT STATES "NO YOU ARE TAKING ME HOME." FLORES WITH PT TELLING HER "TO LAY DOWN IN BED AND GO TO SLEEP." PT AND SITTING ON EDGE OF BED. PT CONTINUES TO BE AGITATED. RN IN ROOM ONE ON ONE. RN TO REMAIN IN ROOM FOR PT SAFETY.
--- NOTE | 2017-07-13 22:10 | NUR ---
RN HAS REMAINED IN ROOM WITH AND PT. PT CONTINUES TO BE AGITATED AND DEMANDING "TO GO HOME." SECOND RN INTO ROOM TO SIT WITH PT. PT'S REQUEST TO TALK TO RN AT NURSES STATION. PT'S STATES "YOU NEED TO GIVE HER SOMETHING IN HER IV TO KNOCK HER OUT." DISCUSSED WITH PT'S THAT WILL CONTACT MD TO DISCUSS PT'S AGITATION. SECOND RN REMAINS IN ROOM TO BE ONE ON ONE WITH PT. PT SITTING UP AT BEDSIDE.
--- NOTE | 2017-07-13 22:15 | NUR ---
SPOKE WITH DR. PATTON, DISCUSSED PT'S AGITATION. INFORMED MD THAT PT'S REQUESTING SOMETHING "TO KNOCK THE PT OUT." ORDER FOR SEROQUEL 25 MG PO EVERY 6 HOUS PRN FOR AGITATION GIVEN. VERIFIED BY READ BACK METHOD. ORDER ADDED TO CHART.
--- NOTE | 2017-07-13 22:20 | NUR ---
IN TO PT'S ROOM, SITTING IN CHAIR, PT SITTING AT EDGE OF BED. PT CONTINUES TO DEMAND "TO GO HOME." PT VISABLY AGITATED WITH HER . PT STATES "THIS IS A BUNCH OF BS, I WANT YOU TO TAKE ME HOME." PT'S ASKING PT "LAY DOWN AND GO TO SLEEP." PT'S STATES "I DON'T KNOW WHY YOU ARE ACTING LIKE THIS." SEROQEL GIVEN FOR AGITATION PER ORDER. RN IN ROOM ONE ON ONE FOR PT SAFETY.
--- NOTE | 2017-07-13 22:45 | NUR ---
RN REMAINING IN ROOM, PT OOB BED ATTEMPTING TO TAKE OFF PULSE OX PROBE. PT'S SITTING AT BEDSIDE, ATTEMPTING TO REDIRECT PT, UNSUCCESSFUL. PT REMAINS RESTLESS, UP AND WALKING AROUND THE ROOM. PT STATES "I HAVE TO GO OUT THERE (POINTS TO [place])." RN ATTEMPT TO REORIENT PT BY ADVISING THAT SHE IS IN THE HOSPITAL AND THERE ARE OTHER PT ON THE FLOOR. PT STATES "OH FINE, I AM FED UP WITH YOU." PT ASSISTED BACK TO BEDSIDE. PT'S IS OUTWARDLY FRUSTRATED WITH PT STATING "I AM NOT SURE IF I CAN DEAL WITH THIS." PT'S REASSURED, OFFERED TO LET GO HOME AT THIS TIME. DECLINES, STATES "I JUST NEED TO GO FOR A WALK." RN AT BEDSIDE ONE ON ONE WITH PT.
--- NOTE | 2017-07-13 23:00 | NUR ---
RN AT BEDSIDE, HAS REMAINED IN ROOM AT ALL TIME. PT ATTEMPTING TO PULL ON IV TUBING. RN ATTEMPTING TO REORIENT PT TO PLACE AND NEED FOR IV. CHARGE NURSE IN ROOM TO SIT WITH PT. PT'S AT BEDSIDE. IV SITE WRAPPED. PT CONTINUES TO BE AGITATED AND RESTLESS. PT OBSERVED SITTING UP AT BEDSIDE THEN LAYING BACK DOWN SEVERAL TIMES. O2 @ 4L VIA NC IN PLACE. TWO RN'S AT BEDSIDE FOR PT SAFETY.
--- NOTE | 2017-07-13 23:15 | NUR ---
SPOKE WITH DR. PATTON, ADVISED THAT PT REMAINS AGITATED AND HAS BEEN MEAN TO STAFF AND . ADVISED THAT 2 RN'S IN ROOM TO MONITOR PT SAFETY. DR. PATTON ASKING ABOUT PT'S MENTATION. MD ADVISED THAT PT IS NOT ABLE TO ORIENT TO TIME OR PLACE. PT HAS STATED "THAT THERE IS SOMETHING GOING ON IN THE BACK YARD (POINTS TO WINDOW), I HAVE TO GO AND TAKE CARE OF IT." ORDER PER MD HALOPERIDOL 5 MG IV ONCE TO BE GIVEN FOR AGITATION. ORDER VERIFIED BY READ BACK METHOD. ORDER NOTED IN CHART.
--- NOTE | 2017-07-13 23:45 | NUR ---
PT CONTINUES TO BE AGITATED DISPITE MEDICATIONS GIVEN PER MD. PT ATTEMPTING TO PULL ON IV TUBING. PULSE OX PROBE OFF AT THIS TIME, PT AGITATED BY PLACEMENT AND ALARM. PT'S VIABLY FRUSTRATED AND FLORES WITH PT AT TIMES ATTEMPTING TO GET PT TO STAY IN BED. 2 RN'S HAVE REMAINED ONE ON ONE WITH PT AT ALL TIMES. DISCUSSED PT CURRENT CONDITION WITH CHARGE NURSE. DUE TO PT ATTEMPTING TO REMOVE IV AND ATTEMPTING TO LEAVE ROOM, RN TO CALL MD. VENANCIO ANTUNEZ REMAINS ONE ON ONE WITH PT.
--- NOTE | 2017-07-13 23:50 | NUR ---
SPOKE WITH DR. PATTON, NOTIFIED THAT PT REMAINS AGITATED AND IS AT THIS TIME A 2 PERSON ONE-ON-ONE. ORDER FOR ATIVAN 0.5 MG IV NOW, MAY REPEAT DOSE IN 15 MINUTES IF PT CONTINUES TO BE AGITATED. ORDER VERIFIED BY READ BACK METHOD AND DOCUMENTED.
--- NOTE | 2017-07-13 23:55 | NUR ---
RN IN ROOM, ATIVAN GIVEN PER MD ORDERS. 2 RN'S AND PT'S AT BEDSIDE. PT ASSISTED TO BED. ATTEMPTED TO REPOSITION AND COMFORT PT. O2 IN PLACE AT 4L VIA NC. CHARGE NURSE DISCUSSED WITH THAT PT FELL APPROX. 3 WEEKS AGO SUFFERING PELVIC, SCAPULA AND MULTIPLE RIB FRACTURES. PT'S STATES THAT PT HAS BEEN TAKING PERCOCET 5/325 MG, 1-2 TABLETS PO EVERY 4 HOURS AT HOME SINCE FALLING. ADVISED THAT WILL CONTINUE TO MONITOR PT TO SEE IF ATIVAN WILL HELP WITH AGITATION. 2 RN'S REMAIN AT BEDSIDE FOR PT SAFETY. PT APPEARS DROWSY AT TIMES, LAYING DOWN FOR SHORT MOMENTS BEFORE ATTEMPTING TO GET OUT OF BED AGAIN. PT CONTINUING TO DEMAND TO "GO HOME AND GO TO BED." PT HAS ASKED TO TAKE HER HOME SEVERAL TIME. PT ALSO STATES " WE HAVE TO GO DOWN THE [place] AND GET IN BED." ATTEMPTS TO REORIENT PT UNSUCCESSFUL. PT'S OUT OF ROOM. 2 RN'S AT BEDSIDE.
--- NOTE | 2017-07-14 00:29 | NUR ---
PT CONTINUES TO BE AGITATED AND GET OOB. PT WILL LAY DOWN MONMENTARILY. RN NOTES PT TO BE VERY RESTLESS, LEGS MOVING CONSTANTLY. PT CONTINUES TO ATTEMPT TO PICK/PULL AT IV SITE. PT SCRATCHES AT SKIN OFTEN. SECOND DOSE OF ATIVAN GIVEN. PT NOW AWAKE ASKING " WHERE ARE YOU BOYS AT, THE ONES YOU ALWAYS HANG OUT WITH?" ATTEMPTS TO REORIENT PT AND CALM HER. AFTER HEARING CALL LIGHT IN [place] PT STATES TO "WE BETTER BE QUIET OR WE ARE GOING TO WAKE YOU PARENTS UP." AT THIS TIME PT'S AGITATION NOTED TO INCREASE. PT SITTING UP IN BED, HITTING FISTS ON BED. ASKED PT ABOUT PAIN, PT STATES "MY HIPS HURT." PT BEGINS TO HIT FISTS ON BED STATING "GIVE ME PILLS FOR THE PAIN." CHARGE NURSE TO REMAIN AT BEDSIDE, RN TO CALL MD TO DISCUSS PAIN.
--- NOTE | 2017-07-14 00:30 | NUR ---
SPOKE WITH DR. PATTON, ADVISED MD THAT PT HAD SUFFERED FALL AND HAS BEEN TAKING PERCOCET. REPORTED THAT PT REMAINS AWAKE AND AGITATED DISPITE MEDICATIONS GIVEN. ORDER FOR MORPHINE 2 MG IV EVERY 3 HOURS NEEDED FOR PAIN. ORDER VERIFIED VIA READ BACK METHOD. ORDER DOCUMENTED.
--- NOTE | 2017-07-14 00:40 | NUR ---
IN TO ROOM TO ADMINISTER MORPHINE PER ORDER. WHEN DISCUSSING MEDICATION WITH PT'S HE ASKED "HOW MUCH ARE YOU GIVING HER?" RN ADVISED MORPHINE 2 MG IV ORDERED FOR PAIN. PT STATES " YOU CAN TRY IT BUT IT WON'T TOUCH IT." STATES "WHEN THE PAIN HAS GOTTEN BAD AND THE PERCOCET DOES NOT HELP, I HAVE GIVEN HER 15MG OF MY MORPHINE AND IT DOESN'T HELP." RN AND CHARGE NURSE DISCUSSED WITH THAT PT HAS TAKEN HER HUSBANDS PERSCRIPTION MORPHINE WHILE AT HOME FOR PAIN. PT'S STATES "WHEN 1 OR 2 PERCOCET DOESN'T HELP SHE MAY TAKE A LITTLE MORE." 2 RN'S REMAIN AT BEDSIDE TO MONITOR PT.
--- NOTE | 2017-07-14 01:15 | NUR ---
RN, CHARGE NURSE, RT AND LONG TERM CARE SOCIAL WORKER IN ROOM DISCUSSING PT'S CURRENT CONDITION. 02 SATS RANGING 79-88%, THOUGH DIFFICULT TO MONITOR DUE TO PT MOVEMENT. PER LONG TERM CARE SOCIAL WORKER SUGGEST CONTACTING MD TO CONSIDER BIPAP DUE TO INADEQUATE VENTOLATION. PT'S STATES THAT PT NORMALLY WEARS BIPAP WHILE SLEEPING AT HOME. RN TO CALL MD. CHARGE NURSE, RT AND LONG TERM CARE SOCIAL WORKER REMAIN IN ROOM TO MONITOR PT.
--- NOTE | 2017-07-14 01:23 | NUR ---
SPOKE TO DR. PATTON, BIPAP ORDERED. ORDER VERIFIED BY READ BACK METHOD AND DOCUMENTED IN CHART. RT NOTIFED. WILL SET UP BIPAP AT THIS TIME. CHARGE NURSE AT BEDSIDE ON-ON-ONE TO MONITOR PT.
--- NOTE | 2017-07-14 01:30 | NUR ---
RN AND CHARGE NURSE AT BEDSIDE MONITORING PT. PT IN BED, LYING DOWN. PT CONTINUES TO BE RESTLESS, KICKING LEGS CONSTANTLY. PT'S ARMS UP IN AIR MAKING PICKING MOTIONS. O2 @ 4L VIA NC, PULSE OX OFF AT THIS TIME DUE TO MAKING THE PT INCREASINGLY AGITATED. PULSE OX ATTACHED, O2 88%. PT NOTED TO BE EXHIBITING SHALLOW BREATHING THOUGH SHE CONTINUES TO TALK TO RN'S. LUNGS ASSESSED. RT CALLED TO FLOOR TO EVALUATE. RT IN ROOM.
--- NOTE | 2017-07-14 01:35 | NUR ---
PT IN BED, BI PAP IN PLACE. RT, CHARGE NURSE, RN AND SYSTEMS REQUIREMENTS PLANNER AT BEDSIDE. PT APPEARS TO BE MORE CALM, RESTING WITH EYES CLOSED. RN NOTED PT WITH LE RESTLESSNESS. PT'S LEAVING TO GO HOME AT THIS TIME. REASSURED PT'S THAT RN WILL BE AT BEDSIDE TO MONITOR PT.
--- NOTE | 2017-07-14 02:10 | NUR ---
CHARGE NURSE REMAINS AT BEDSIDE ONE-ON-ONE WITH PT. PT APPEARS TO BE IMPROVING. BIPAP IN PLACE. PT ATTEMPTING TO COMMUNICATE BUT APPEARS TO BE MORE RELAXED. PT DOES ATTEMPT AT TIMES TO REMOVE BIPAP. CHARGE NURSE TO REMAIN ONE-ON-ONE TO ATTEMPT TO COMFORT PT.
--- NOTE | 2017-07-14 04:15 | NUR ---
IN TO SEE PT, PT RESTING IN BED. AWAKENS EASILY TO VOICE. PT UP TO BSC, 2 PERSON ASSIST. PT AWAKE, FOLLOWS COMMANDS. NEW ATTENDS PLACE. ASSISTED BACK TO BED, TOLERATED WELL. PT STATES " IT IS COLD." WARM BLANKET GIVEN. PT AGREES TO REPLACING BIPAP. ALL SIDE RAILS IN PLACE. BED ALARM ON, CALL LIGHT IN REACH.
--- NOTE | 2017-07-14 04:32 | NUR ---
IN TO CHECK ON PT, PT RESTLESS IN BED. BIPAP IN PLACE. PT NOTED TO HAVE KNEES AGAINST BEDRAILS, PT REPOSITIONED AND PILLOW PLACE ON BEDRAIL. PT ATTEMPTING TO SIT UP IN BED WITH ELBOWS PRESSED AGAINST THE MATTRESS. HEEL PROTECTORS PLACED ON ELBOW TO PREVENT INJURY. PT TALKING TO RN WITH BIPAP ON. NO FURTHER NEEDS AT THIS TIME. BED ALARM ON, ALL SIDERAILS IN PLACE.
--- NOTE | 2017-07-14 05:04 | NUR ---
CHANGED BED SHEETS.
--- NOTE | 2017-07-14 06:18 | NUR ---
IN TO PT ROOM, PT SITTING UP IN BED. PT REQUESTING TO USE THE BATHROOM. PT ASSISTED UP TO BSC WITH 2 PERSON. FOLLOW COMMANDS. PT ASSISTED BACK TO BED. O2 @ 5L PER MASK, O2 82-84 %. PT PLACED BACK ON BIPAP, O2 SAT 87%. BED ALARM ON, SIDE RAILS IN PLACE. CALL [facility] IN REACH.
--- NOTE | 2017-07-14 07:20 | NUR ---
BEDSIDE REPORT RECIEVED FROM KATE DELGADO. PT RESTING, IS ON BIPAP. OXYGEN SATURATION LEVEL AT 85%. CALLED RT, AND BY THE TIME KEL RT ARRIVED TO ROOM, PT'S OXYGEN SATURATION LEVEL WAS 94%. KEL RT IN ROOM WITH PT NOW.
--- NOTE | 2017-07-14 07:50 | NUR ---
PT ON BIPAP, FIO2 IS 50%, PT IS SLEEPING SOUNDLY. BG 62. NO IV INTERVENTIONS FOR LOW BG NOTED ON EMAR. NOTIFIED DR. PATTON VIA TELEPHONE. RECIEVED ORDER TO GIVE 1/2 AMP OF D50.
--- NOTE | 2017-07-14 08:18 | NUR ---
PT ASLEEP IN BED. FRESH ICE WATER. AM CARE.
--- NOTE | 2017-07-14 10:03 | NUR ---
PT DENIES PAIN. RESPIRATIONS SHALLOW, WITH LOOSE COUGH. PT VERY DROWSY, AROUSED TO VERBAL STIMULI AND RUBBING ARM. REQUIRED REPEATED VERBAL STIMULI TO OPEN EYES. HAS IV MAGNESIUM INFUSING, THEN IV POTASSIUM WILL INFUSE. PT ON 6L O2, OXYGEN SATURATION LEVEL RANGES FROM 84-92%. PT ORIENTED TO SELF.
--- NOTE | 2017-07-14 10:04 | NUR ---
PT SLEEPING IN BED. O2 STATS ARE LOW NOTIFED NURSE. PT HAS CALL LIGHT IN REACH. IN ROOM. GOT SOME COFFEE. ASSISTED NURSE PAMELA HELPING THE PT TO BR AND BTD
--- NOTE | 2017-07-14 10:24 | NUR ---
DR. PATTON AWARE OF PT'S LOW OXYGEN SATURATION LEVEL, RANGING FROM LOW 80s TO LOW 90s ON BIPAP AND 6L O2 VIA NC.
--- NOTE | 2017-07-14 11:48 | NUR ---
PATIENT CONFUSED, COMBATIVE. PATIENT STATES "I GOTTA GO" THIS RN ASSISTS PATIENT UP TO BSC, ONE PERSON ASSIST. PATIENT HAS LG URINE INCONTINANCE IN ATTENDS AND VOIDS 200 MLS TO BSC. SANTHOSH CARE DONE, PLACED PATIENT IN CLEAN ATTENDS. PATIENT BACK TO BED, SIDE RAILS UP XS 4 BED ALARM ON. PATIENT REQUIRING ONE TO ONE CARE AT THIS TIME D/T CONFUSION/HYPOXIA. WHEN RESTING IN BED O2 SATS 90% ON 15L SM. THIS RN TITRATES O2 TO 5L SM, SATS 84-89% ATTEMPTED TO RE-ORIENT PATIENT. PATIENT AWAITING TRANSFER TO CCU WHEN BED BECOMES AVAIABLE.
--- NOTE | 2017-07-14 11:54 | NUR ---
[id number] TO 7L ON OXYMASK TO KEEP SATS 85-89% PATIENT RESTING WITH EYES CLOSED AT THIS TIME.
--- NOTE | 2017-07-14 12:09 | NUR ---
Patient up to bsc 2 person assist. Voids 300 also incontinant of urine.
--- NOTE | 2017-07-14 12:25 | NUR ---
PT IN BED, RESTING. WAS UP TO BEDSIDE COMMODE WITH 2 PERSON ASSIST. PT VOIDED IN COMMODE, THEN TRANSFERED BACK TO BED WITH 2 PERSON ASSIST. IS IN BED, HOB ELEVATED, RESTING WITH EYES CLOSED. PER TOOTIE Escalante RN, PT'S OXYGEN LEVEL WAS TITRATED DOWN TO 7L VIA OXY MASK, AND PT IS TOLERATING THIS THUS FAR, OXYGEN SATURATION LEVEL 90%.
--- NOTE | 2017-07-14 12:56 | NUR ---
RECEIVED PT VIA BED TO ROOM 129, PT IS OBTAINED AND MAITING HER OWN AIRWAY AND SEE VS FOR SPO2. BED ALARM ON AND PT IS ACROSS FROM NURSES STATION IN VIEW OF STAFF. SIDE RAILS X4 AT THIS TIME ALSO.
--- NOTE | 2017-07-14 13:04 | NUR ---
PATIENT SLEEPING. O2 SATS 90% ON 7L VIA OXY MASK. TITRATED O2 TO 5L OXYMASK. PATIENT SLEEPS. PATIENT GIVEN 40 MG IV LASIX. PATIENT WEARING ATTENDS. CHUX ON BED.
--- NOTE | 2017-07-14 13:27 | NUR ---
PATIENT UP TO BSC TO VOID. PATIENT TOLERATES WELL. SANTHOSH CARE DONE, PATIENT BACK TO BED. CALLED RT IN TO PLACE PATIENT BACK ON BIPAP. PATIENT IS SLEEPY WHEN IN BED. PATIENTS IN TO SEE PATIENT, STAYS AT BEDSIDE LESS THAN 10 MINUTES AND LEAVES TO "RUN SOME ERRANDS AND GO SHOPPING"
--- NOTE | 2017-07-14 13:52 | NUR ---
PT SITTING UP IN BED WITH BIPAP INPLACE AT THIS TIME. TALKS WHEN SPOKEN TOO. WANTED TO WATCH THE [place] ON TV WHICH STAFF TURNED ON FOR HER. HEART RATE 60'S TO THE 70'S AND SPO2 90 % AT THIS TIME.
--- NOTE | 2017-07-14 14:44 | NUR ---
PT UP TO THE BEDSIDE COMMODE, VOIDED AND THEN BACK TO BED AND BACK ONTO BIPAP. PT AT TIMES OPENS HER EYS , BUT FOR THE MOST PART SHE IS RESTING. BED ALARM ON SIDE RAILS X4 AND REMAINS ACROSS FROM NURSES STATION.
--- NOTE | 2017-07-14 15:28 | NUR ---
PT CONTIOUES TO WEAR BIPAP AND APEARS TO RESTING COMFORTABLE AT THIS TIME. SPO2 91% AT THIS TIME.
--- NOTE | 2017-07-14 16:07 | NUR ---
PT UP TO THE BEDSIDE COMMODE, PLACED ON OXYMASKE WHILE UP. PT BACK TO BED WITH INCREASED RR 33 AT THIS TIME. OXYMASK AT 10L'S PT BACK TO SLEEP.
--- NOTE | 2017-07-14 17:31 | NUR ---
PT HAVING DECREASE SPO2 DOWN TO 72, PLACED BACK ONTO BIPAP AND FIO2 INCREASED TO 100%. PT SPO2 INCREASED OVER TIME, PT INCONTENT OF URINE. THEN BACK TO BED DECREASED FIO2 TO KEEP SPO2 GREATER THAN 89%
--- NOTE | 2017-07-14 17:37 | NUR ---
DR PATTON IN DEPARTMENT AND WE WILL KEEP ACCURATE SPO2 ON PT AND TRATATE FIO2 TO KEEP SPO2 GREATER THAN 89%. PT NPO AT THIS TIME. DUE TO SPO2 AND DECREASING WHEN ON OXYMASK AT THIS TIME. SPO2 AT 75% AT THIS TIME. AT THE BEDSIDE.
--- NOTE | 2017-07-14 17:43 | NUR ---
ATTEMPTED TWICE TO START ANOTHER IV SITE, UNSUCCESSFUL. IVF REMAIN AT 150 ML HR.
--- NOTE | 2017-07-14 17:57 | NUR ---
PT LEFT AT THIS TIME, BIPAP FIO2 INCREASED TO 100% DUE TO PT GOT UP TO THE BS COMMODE AND COULD NOT RECOVER AT 75%. EVEN WITH THE FIO2 AT 100% SPO2 IS 90% AT THIS TIME. STAFF HELD MEDS AND ALL FOOD AND LIQUIDS AT THIS TIME. DUE TO THE AMOUNT OF FIO2 IS NEEDED TO KEEP PT SPO2 TO A SAFE LEVEL.
--- NOTE | 2017-07-14 18:11 | NUR ---
ALEJANDRO CATHETER PLACED DUE TO PT NEEDING TO GET UP TO THE BS COMMODE AND THEN SHE HAS INCREASED SOB AND SPO2 DECREASES. CATHETER PLACED AND INSTANTE CLEAR YELLOW URINE RETURNED.
--- NOTE | 2017-07-14 19:00 | NUR ---
RT IN TO DRAW ABG.
--- NOTE | 2017-07-14 19:30 | NUR ---
REPORT RECEIVED. PT RESTING IN BED WITH BIPAP ON 75% FIO2 15/10 WITH SPO2 93%.
--- NOTE | 2017-07-14 19:55 | NUR ---
ABG RESULTS DISCUSSED WITH RT AND CALLED TO DR PATTON, PLAN TO SWITCH PT FROM BIPAP TO CPAP AT THIS TIME. PT AWAKE IN BED, ANSWERS QUESTIONS.
--- NOTE | 2017-07-14 20:15 | NUR ---
AXILLARY TEMP 103, RECTAL TEMP 104.2, DR PATTON NOTIFIED AND WILL PUT IN ORDERS FOR TYLENOL AND ABX. PT ALSO INCREASING IN RESTLESSNESS, LOOKS VERY UNCOMFORTABLE. SPO2 DOWN TO 88% NOW, RR UP TO 40.
--- NOTE | 2017-07-14 20:35 | NUR ---
TYLENOL SUPPOSITORY GIVEN, LEVAQUIN STARTED INFUSING, 2MG IV MORPHINE GIVEN FOR PT RESTLESSNESS AND RESP DISCOMFORT. AWAITING CEFEPIME FROM ASP NET PROGRAMMER, IVF STARTED AT 60ML/HR. PT IS ON CPAP FIO2 75% SPO2 89-90%, [id number], HR HAS GONE FROM 100-128 THE LAST HOUR.
--- NOTE | 2017-07-14 21:01 | NUR ---
PT IS MORE CALM AND LESS RESTLESS/AGITATED AFTER MORPHINE GIVEN, APPEARS MORE RELAXED.
--- NOTE | 2017-07-14 21:30 | NUR ---
RECTAL TEMP DOWN TO 103. REPOSITIONED. IV LOPRESSOR GIVEN, HR DOWN FROM 130 TO 110.
--- NOTE | 2017-07-14 21:55 | NUR ---
RT IN WORKING WITH PT.
--- NOTE | 2017-07-14 23:49 | NUR ---
PT HAS BEEN RESTING COMFORTABLY THE LAST COUPLE HOURS ON OXYMASK AT 15L, HR 101, RR 24, SPO2 94%. ASSESSMENT COMPLETED.
--- NOTE | 2017-07-15 02:00 | NUR ---
PT HAS CONTINUED TO REST QUIETLY FOR THE LAST COUPLE OF HOURS, RR 26, SPO2 96% OXYMASK 15L, HR 100, BLOOD PRESSURES LOWER AT THIS TIME, WILL WAIT TO GIVE LOPRESSOR.
--- NOTE | 2017-07-15 06:41 | NUR ---
RT IN TO DO ABG
--- NOTE | 2017-07-15 07:27 | NUR ---
UP TO BSC, CARMELITA WELL, BACK TO BED AND CXR DONE
--- NOTE | 2017-07-15 08:27 | NUR ---
PT AWAKE AND UP TO BSC, HAD MED BROWN, FORMED STOOL AND RETURNED TO BED. SATS 100% ON 15L PER OXY MASK, 02 DECREASED TO 6L AND THEN OFF. NC IN PLACE AT 3L. SPONGE BATH GIVEN AND ASSESSMENT COMPLETED, DENIES C/O AT THIS TIME. PT PT SAT ON EDGE OF BED AND ATE APROX 50% OF BREAKFAST THEN RETURNED TO BED. R.T. HERE AND NEB TX GIVEN. DR. PATTON IN TO ASSESS PT.
--- NOTE | 2017-07-15 12:19 | NUR ---
ASSESSMENT COMPLETED, PT SITTING ON EDGE OF BED EATING LUNCH, NO C/O AT THIS TIME.
--- NOTE | 2017-07-15 12:25 | NUR ---
UP TO BSC WITH ONE PERSON ASSIST, HAD ANAND DALLAS, SOFT BM. PT RETURNED TO BED WITH ASSIST AND IS FINISHING HER LUNCH.
--- NOTE | 2017-07-15 14:17 | NUR ---
PT SITTING ON SIDE OF BED, VISITING WITH HER LYDIA. THEY HAD JUST BEGAN SORTING THROUGH THE MAIL, AND PAYING BILLS. SHE MENTIONED THAT SHE IS BETTER-SAID SHE SCARED EVEN HER SELF AY HOW SICK SHE WAS WHEN SHE CAME IN THIS LAST WEEKEND. I PRAYED FOR THEM-HAD AN ENJOYABLE VISIT. SHE NEEDED TO, I WILL CONTINUE TO FOLLOW
--- NOTE | 2017-07-15 14:36 | NUR ---
DC BEDSPREAD INSPECTOR IN TO TALK WITH PT.
--- NOTE | 2017-07-15 15:56 | NUR ---
PT AMBULATED IN HALLWAY WITH 2 PERSON ASSIST. PT ON 3L PER NC. SATS 93%.
--- NOTE | 2017-07-15 19:51 | NUR ---
REPORT RECEIVED FROM KATE THEODORE. PT LYING IN BED RECEIVING NEB TX FROM RT AT THIS TIME. PATIENT COUGHING AND IS NOTED TO HAVE A LOOSE, PRODUCTIVE SOUNDING COUGH. PATIENT HAS ALEJANDRO DRAINING YELLOW URINE. PT ALERT AND ORIENTED TO SELF ONLY, BUT STATES IT IS 1975, THEN 1989. PT TALKING RANDOMLY ABOUT THINGS THAT ARE TO GO ON IN THE FUTURE, BUT NOTHING CORRELATING WITH CURRENT SITUATION. CONTINUE TO MONITOR.
--- NOTE | 2017-07-15 20:06 | NUR ---
BED ALARM ON FOR SAFETY. PATIENT NOW IN BED AND RESTING FOR THE EVENING. CONTINUE MAYNOR ONITOR.
--- NOTE | 2017-07-15 21:33 | NUR ---
PATIENT HAS SET OFF BED ALARM MULTIPLE TIMES AND IS VERY CONFUSED. PATIENT STATING ODD THINGS AND ASKS ABOUT CONVERSATIONS THAT SHE IS HEARING ON THE TV. ALEJANDRO EMPTIED FOR 575 ML YELLOW URINE. IV ANTIBIOTICS INFUSING INTO RIGHT FOREARM IV. HEART RATE NOTED TO BE TRENDING UP, HIGH THE 120-130s, SINUS. CURRENTLY HEART RATE RANGING 107-110s MOSTLY. CONTINUE TO MONITOR. PATIENT HAD METOPROLOL EARLIER THIS EVENING. PT ON 2.5 L NC. PT WORE CPAP FOR ABOUT 5 MINUTES BEFORE TEARING IT OFF. BED ALARM REMAINS ON FOR SAFETY.
--- NOTE | 2017-07-15 22:10 | NUR ---
REPORT RECEIVED FROM YASEMIN LOVE. PT IS CURRENTLY LYING IN BED, RESP EVEN AND SLIGHTLY LABORED, HR 100-108, O2 AT 2.5L/NC, RR 20'S. BED ALARM ON.
--- NOTE | 2017-07-15 22:51 | NUR ---
PT AWAKENS, TRYING TO GET UP, CONFUSED ABOUT SITUATION AND PLACE HOOP MAKER IN ONE ON ONE WITH PT AT THIS TIME.
--- NOTE | 2017-07-15 23:27 | NUR ---
PT HAS GROWN INCREASINGLY AGITATED AND ANGRY, YELLING OUT FOR RICH, CONFUSED ABOUT SITUATION DESPITE CONSTANT REORIENTATION. DR PATTON CALLED AND AGITATION DISCUSSED, ALSO INCREASE IN HEARTRATE, ORDERS GIVEN FOR SEROQUEL AND METOPROLOL. PT TAKES PILLS WITHOUT PROBLEMS. PT THEN BECOMES ANGRY THEN TEARFUL SAYING "I WANT MY ". HOMERO CALLED, WHO STATES HE WILL BE IN SHORTLY TO SEE PT. PT CALMS AT THE IDEA OF WAITING FOR HER TO ARRIVE.
--- NOTE | 2017-07-15 23:45 | NUR ---
PTS LYDIA ARRIVES TO SIT AT BEDSIDE.
--- NOTE | 2017-07-16 00:07 | NUR ---
PT HAS CONTINUED TO DEMAND TO GO HOME. UP TO WALK IN HALLWAY WITH DISTRICT MANAGER [employer] SALES AND , HR REMAINS STEADY AT 105 WHILE AMBULATING, RR 24. MOVES SLOW BUT STEADY, DOWN TO END OF HALLWAY AND BACK, THEN BACK TO BED.
--- NOTE | 2017-07-16 00:56 | NUR ---
PT CONTINUE TO BE AGITATED, CONFUSED, ANGRY AND CLIMBING OUT OF BED. DR PATTON CALLED, ANOTHER 25MG SEROQUEL GIVEN. REMAINS AT BEDSIDE.
--- NOTE | 2017-07-16 01:08 | NUR ---
LEAVING NOW, PT IN BED WITH BED ALARM ON AND ROOFING LAYER AT BEDSIDE.
--- NOTE | 2017-07-16 02:31 | NUR ---
PT STILL VERY AGITATED, CONSTANTLY CLIMBING OUT OF BED, PULLING AT CATHETER AND IVS, ATTEMPTS TO LIE DOWN IN BED THEN SHE STARTS RUBBING AT HER LEGS, C/O PAIN IN RIGHT HIP, LEGS VERY RESTLESS. CALL TO DR PATTON, ORDER GIVEN FOR MORPHINE. MORPHINE 2MG IV GIVEN, PT TUCKED BACK IN BED, BED ALARM ON AND SIDE RAILS UP. PT INSTANTLY CALMS AT HEARING THAT SHE WILL BE GETTING SOME MORPHINE, LIES BACK IN BED AND CLOSES HER EYES BEFORE MORPHINE IS EVEN INJECTED.
--- NOTE | 2017-07-16 03:02 | NUR ---
PT HAS BEEN IN A BETTER MOOD SINCE GIVEN THE MORPHINE, NO LONGER ANGRY AND FIGHTING, STILL AWAKE AND LEGS ARE VERY RESTLESS, TRYING TO CLIMB OUT OF BED BUT SHE IS NOW PLEASANT AND FRIENDLY AND WILL FOLLOW DIRECTIONS. STILL RUBBING AT LEGS, ADDITIONAL 2MG IV MORPHINE GIVEN.
--- NOTE | 2017-07-16 04:48 | NUR ---
PT HAS CONTINUED TO TRY TO CLIMB OUT OF BED, PLAY WITH SHEET, CATHETER, MONITOR CORDS. REQUIRING ONE ON ONE CARE. REMAINS ON O2 AT 2.5L/NC WITH SPO2 88-92%.
--- NOTE | 2017-07-16 05:52 | NUR ---
LAB IN TO DRAW BLOOD
--- NOTE | 2017-07-16 08:49 | NUR ---
PT AWAKE BUT SLEEPY, ASSESSMENT COMPLETED. UP TO JARRET CHAIR WITH W PERSON ASSIST. R.T. HERE, NEB TX GIVEN AND VEST APPLIED. PT CARMLEITA WELL. PT REMAINS IN JARRET CHAIR WITH EYES CLOSED, 02 ON AT 3L PER NC.
--- NOTE | 2017-07-16 09:17 | NUR ---
Patient in chair eating breakfast.
--- NOTE | 2017-07-16 11:57 | NUR ---
VISITED WITH PT SHE WAS WALKING IN [place] WITH RN AND MANAGER OF SOFTWARE DEVELOPMENT. ALWAYS UPBEAT, FRIENDLY AND COURTEOUS.
--- NOTE | 2017-07-16 12:03 | NUR ---
DR. PATTON IN TO ASSESS PT. NEW ORDERS RECEIVED.
--- NOTE | 2017-07-16 13:43 | NUR ---
PT AGITATED AND WANTING TO LEAVE. PT STOOD AT BEDSIDE WITH ASSIST. PT REFUSED NEB TX AND CPAP AT THIS TIME. DR. PATTON NOTIFIED AND ORDERS RECEIVED. Staci. CALLED AND ABG COMPLETED. R.T. PLACED PT ON CPAP AND PT NOW RESTING IN BED AFTER TALKING TO PT AND REMINDING HER SHE IS AT THE HOSPITAL.
--- NOTE | 2017-07-16 15:47 | NUR ---
R.T. IN TO GIVE NEB TX AND CPAP IN PLACE. PT AGITATED AND WANTS TO GET UP. IN ROOM.
--- NOTE | 2017-07-16 17:21 | NUR ---
Letting patient sleep per RN
--- NOTE | 2017-07-16 18:36 | NUR ---
PATIENT GOT UP ON OWN, STANDING BY BEDSIDE WHEN BED ALARM WENT OFF. GOT PATIENT BACK INTO BED, COVERED WITH WARM BLANKET.
--- NOTE | 2017-07-16 18:59 | NUR ---
PT IN AND OUT OF BED SEVERAL TIMES IN THE LAST HOUR. REDIRECTED PT AND IS NOW BACK IN BED WITH OXYMASK ON AT 5L, SATS 92%.
--- NOTE | 2017-07-16 19:54 | NUR ---
REMAINS VERY CONFUSED AND IMPULSIVE. GETS OUT OF BED ON OWN. NO SOB. RT IN TO DO TX.
--- NOTE | 2017-07-16 23:37 | NUR ---
CONT TO BE CONFUSED AND IMPULSIVE. DR PATTON AWARE AND PT GIVEN TRAZADONE AT 2130 AND RECIEVED ORDER FOR ZYPREXA 5MG WHICH WAS GIVEN. PT PULLED IV OUT AND WAS RESTARTED. AT TIMES IS PLEASANT AND THEN AT TIMES CANTANKOROUS.
--- NOTE | 2017-07-17 01:41 | NUR ---
HAS BEEN QUIETER THOUGH HASN'T SLEPT. C/O BEING HUNGRY, THINKS SHE HASN'T EATEN FOR OVER A DAY DOESN'T KNOW WHAT TIME IT IS AND UNABLE TO ORIENT HER. GIVEN SANDWICH BOX AND CHIPS..
--- NOTE | 2017-07-17 04:20 | NUR ---
HAD PT LAY IN BED ON SIDE AND RUBBED PT'S BACK TO SEE IF SHE COULD RELAX AND GO TO SLEEP. AFTER SEVERAL MIN PT STATED SHE COULD NOT STAY THAT WAY DUE TO HIP PAIN. TRYING WARM PACK.
--- NOTE | 2017-07-17 05:16 | NUR ---
PT STAYED IN BED WITH EYES CLOSED FOR ABOUT 15MIN. UP AND CRANKY. AMB IN ROOM, UNABLE TO REASON WITH PT. EVENTUALLY CALMER BUT STILL VERY CONFUSED. DOES C/O LEG, KNEE PAIN. GIVEN 650MG TYLENOL PO. ALSO HAD DRY COUGH THAT AWAKENS PT.
--- NOTE | 2017-07-17 07:12 | NUR ---
PT FELL ASLEEP ABOUT 0540, LABS HELD IS CURRENTLY SLEEPING.
--- NOTE | 2017-07-17 09:10 | NUR ---
PT SAT AT THE EDGE OF THE BED TO EAT BKF THIS AM. IS AT THE BEDSIDE VISITING WITH PT THIS AM. PT ALLOWED LAB TO DRAW FOR A SAMPLE. PT ATE WELL, AND CURRENTLY COOPERATIVE WITH HOSPITAL ROUTINE.
--- NOTE | 2017-07-17 10:26 | NUR ---
PT UP TO THE CHAIR, CHAIR ALARM ON AT THIS TIME, PT HAS CALL LIGHT IN HAND. AT TIMES JUST PUSHES AND WILL NOT LET UP IN THE NURSE CALL LIGHT. DR PATTON INTO SEE PT NEW ORSERS RECEIVED AND PT WILL BE TRANSFERED TO THE M/S UNIT AT SOMEPOINT TODAY.
--- NOTE | 2017-07-17 12:05 | NUR ---
WV WAS SLEEPING OR RESTING HER EYS, RT COMPLETED THERE TX WITH HER AND SHE WAS SET UP FOR LUNCH.
--- NOTE | 2017-07-17 13:19 | NUR ---
ALEJANDRO CATHER DC'D AT THIS TIMEA ND PT PLACED IN A PULL-UP. PT ALSO WAS UP AMBULATING WITH PT AT THIS TIME. DID WELL WITH THIS PROCESS.
--- NOTE | 2017-07-17 13:59 | NUR ---
PT IS INTO VISIT AT THIS TIME. PT IS HAVING INCREASED CONFUSION AT THIS TIME.
--- NOTE | 2017-07-17 15:43 | NUR ---
PT IN BED LYING QUITLEY, BED ALARM ON AND ROOM IS ACROSS FROM NURSES STATION. SIDE RAILS X 4.
--- NOTE | 2017-07-17 17:18 | NUR ---
PT HAS BEEN UP AMBULATION IN THE UNIT WITH STAFF, WANTS TO GO HOME GIVING DR PATTON A BAD TIME AND STAFF. PT IS COOPERATIVE WITH HOSPITAL ROUTINE, AT PRESENT SHE IS IN BED WATCHING THE WORLD SERIES.
--- NOTE | 2017-07-17 17:21 | NUR ---
PT KEEPS ASKING WHEN DINNER WILL BE HERE. "I HUNGRY"
--- NOTE | 2017-07-17 17:51 | NUR ---
PT AT THE BEDSIDE EATING DINNER TOGETHER. PT IS HAPPY NOW THAT SHE HAS FOOD INFRONT OF HER. PT IS EATING HER CHICKEN TACOS AND ENJOYING THEM. SHE IS SITTING AT THE EDGE OF THE BED, TOOK ALL PO MEDS WHEN GIVEN TO HER.
--- NOTE | 2017-07-17 18:15 | NUR ---
PT ATE DINNER AND NOWS WANT HER TO GO HOME SO SHE CAN SLEEP. ALL LIGHTS TURNED OUT AND SIDE RAILS X4 UP AT THIS TIME, CALL LIGHT WITHIN REACH.
--- NOTE | 2017-07-17 18:36 | NUR ---
PT TRANSFERED TO ROOM 120 VIA HER BED AT THIS TIME. ALL PERSOANL BELONGINGS AND MEDICATIONS SENT WITH PT. SENT PT BEFORE SHE FEEL ASLEEP. REPORT GIVEN FACE TO FACE TO LUIS M.
--- NOTE | 2017-07-17 18:42 | NUR ---
report given from ccu rn in 120. patient brought over in bed. patient confusded. ada diet. blood sugar checks. lungs coarse. edema in lower legs improving. currently on 4 l of oxygen. bed alarm is in place. curtain currently open.
--- NOTE | 2017-07-17 19:04 | NUR ---
Recieved report from day shift nurse. Pt has been on med/surg approximately 20 minutes after transfer from CCU.
--- NOTE | 2017-07-17 19:07 | NUR ---
LUNGS COARSE THROUGHOUT ALL MARTIN, BOWEL TONE ACTIVE X4. PATIENT HAS A SL LOCK IV. PATIENT EATING SOME JELLO IN BED. WATCHING TV QUIETLY.
--- NOTE | 2017-07-17 20:46 | NUR ---
NURSE IN ROOM, PATIENT IS A ONE ON ONE.
--- NOTE | 2017-07-17 21:12 | NUR ---
PT STILL AWAKE ASKING LOTS OF QUESTIONS, OVER AND OVER AGAIN. EVENING MEDS GIVEN. PATIENT'S MEMORY IS VERY SHORT AND SHE IS EASILY IRRITATED.
--- NOTE | 2017-07-17 22:00 | NUR ---
PT JUST GOT UP TO THE BATHROOM WITH STANDBY ASSIST AND VOIDED IN THE TOILET. THEN BACK IN TO BED. PATIENT TRIES TO GET UP ABOUT EVERY 20 MINUTES WITHOUT ASSISTANCE OR HER WALKER AND IS CONSTANTLY CONFUSED ABOUT WHERE SHE IS AND WHY SHE IS HERE. PATIENT IS A ONE TO ONE SHE HAS TO BE CONSTANTLY WATCHED.
--- NOTE | 2017-07-18 00:01 | NUR ---
PATIENT HAS DECIDED SHE IS TRYING TO GO TO SLEEP. TV IS TURNED OFF. PATIENT JUST HAD 650MG OF TYLENOL FOR LEFT KNEE PAIN OF 8/10. EVEN THOUGH SHE NORMALLY HAS 7/10 PAIN ALL THE TIME IN THAT KNEE AND SHE IS OK WITH THAT.
--- NOTE | 2017-07-18 00:21 | NUR ---
NURSE IN ROOM. PATIENT STILL CRAWLING OUT OF BED PERIODICALLY.
--- NOTE | 2017-07-18 02:06 | NUR ---
PATIENT RESTING QUIETLY, EYES CLOSED, O2 ON, RESPIRATIONS EVEN AND REGULAR AT 18/bpm.
--- NOTE | 2017-07-18 03:36 | NUR ---
PATIENT SLEEPING SOUNDLY. NOT SUPPOSED TO BOTHER PATIENT WITH VITAL SIGNS OR I/O MONITORING DURING THE NIGHT PER MD
--- NOTE | 2017-07-18 03:59 | NUR ---
Patient continues to rest quietly, eyes closed, respirations even.
--- NOTE | 2017-07-18 06:21 | NUR ---
PATIENT WAS JUST UP TO THE RESTROOM AGAIN AFTER HER LAB DRAW. PATIENT WAS WEIGHED AND VS TAKEN. PATIENT IS NOW BACK IN BED AWAITING BREAKFAST. SHE STILL HAS A COUGH. PATIENT ALSO HAS 3 SMALL PENCIL ERASER TO PEN TIP SIZE RED ARRIAGA ON HER COCCYX AREA. DISCUSSED WITH PATIENT THE IMPORTANCE OF LYING ON HER SIDE FROM TIME TO TIME AND NOT ALWAYS ON HER BACK TO KEEP FROM DEVELOPING SORES. PATIENT VERBALIZED UNDERSTANDING, BUT WILL HAVE TO HAVE CONSTANT REMINDERS THROUGHOUT THE DAY.
--- NOTE | 2017-07-18 07:50 | NUR ---
PT RESTING SOUNDLY IN BED WITH EYES CLOSED. WOKE BRIEFLY I WAS CHECKING HER BLOOD SUGAR AND WENT BACK TO SLEEP. RESP EVEN AND UNLABORED. BED ALARM ON.
--- NOTE | 2017-07-18 08:30 | NUR ---
PT SITTING UP IN RECLINER EATING BREAKFAST INDEPENDENTLY. ORIENTED TO SELF, LOCATION, AND SITUATION AT THIS TIME. DENIES PAIN, NAUSEA, OR SOB. NO COUGH NOTED. IV FLUSHES WELL, SITE CDI, WITHOUT REDNESS OR INFLAMMATION. SATTING LOW 90'S ON 4L GAURAV. ENEDINA GUTHRIE AT BEDSIDE. CALL LIGHT WITHIN REACH.
--- NOTE | 2017-07-18 09:30 | NUR ---
PT ASSISTED TO SHOWER WITH HELP FROM ENEDINA GUTHRIE.
--- NOTE | 2017-07-18 09:50 | NUR ---
PT RESTING IN BED WITH EYES CLOSED, RESP EVEN AND UNLABORED. ENEDINA CARRILLOA AT BEDSIDE, BED ALARM ON.
--- NOTE | 2017-07-18 10:00 | NUR ---
PT IS A 1:1. EARNEST MCCONNELL IS IN ROOM PROVIDING ALL CARE AND CHARTING.
--- NOTE | 2017-07-18 11:28 | NUR ---
PT ROLAN AGUAYO P.T. USING CARMELITA GIPSON.
--- NOTE | 2017-07-18 13:06 | NUR ---
PT FEELING BETTER-SITTING UP IN BED PUTTING LIPSTICK ON! LYDIA IN. SHORT VISIT, P.T. IN. WILL CONTINUE TO FOLLOW
--- NOTE | 2017-07-18 13:36 | NUR ---
PT IN BED, PUSHED CALL BUTTON AND STATED "I NEED TO KNOW HOW THIS WORKS, IS IT THE DOCTOR OR THE NURSE." PT CONFUSED AT THIS TIME ABOUT CALL LIGHT. HELPED PT FIND SOMETHING TO WATCH ON TV. BED ALARM ON.
--- NOTE | 2017-07-18 14:05 | NUR ---
PT REQUESTED TO SIT IN CHAIR, 2PA. SITTING UP IN CHAIR, LEGS ELEVATED, CALL LIHT WITHIN REACH. CHAIR ALARM ON.
--- NOTE | 2017-07-18 14:30 | NUR ---
HANDOFF REPORT RECEIVED FROM DAY SHIFT RN. PT RESTING IN BED. BED ALARM ON.
--- NOTE | 2017-07-18 14:45 | NUR ---
PT RESTLESS, REQUESTING TO GET OUT OF BED, PT ASSISTED TO CHAIR, CHAIR ALARM ON. LUNG SOUNDS COARSE WITH RHONCHI THROUGHOUT, LOOSE UNPRODUCTIVE COUGH, PT DENIES SOB. BOWEL TONES ACTIVE, DENIES NAUSEA. PULSES PALPABLE, MODERATE EDEMA TO LEFT LOWER EXTREMITY. PT DENIES OTHER NEEDS AT THIS TIME. FAMILY AT BEDSIDE.
--- NOTE | 2017-07-18 14:50 | NUR ---
FUROSEMIDE FOUND AT BEDSIDE IN ORGINAL WRAPPER, EMAR NOTES THAT MEDICATION WAS DOCUMENTED TO BE GIVEN AT 1230, MEDICATION REMOVED FROM ROOM. MD NOTIFIED, VERBAL ORDER TO GIVE MEDICATION AND VERIFY WITH ADMINISTERING RN THAT MEDICATION HAD NOT BEEN GIVEN. RN CALLED AND MESSAGE LEFT TO RETURN CALL.
--- NOTE | 2017-07-18 15:30 | NUR ---
RECEIVED RETURN CALL FROM RN, VERIFIED THAT LASIX HAD NOT BEEN GIVEN AT 1230. MEDICATION ADMINISTERED.
--- NOTE | 2017-07-18 17:09 | NUR ---
PT ASSISTED TO CHAIR FOR DINNER. CHAIR ALARM ON. PT DENIES OTHER NEEDS AT THIS TIME.
--- NOTE | 2017-07-18 18:37 | NUR ---
PT IN CAHIR AWAKE. TOOK TO THE BATHROOM AND PUT TO BED.
--- NOTE | 2017-07-18 19:15 | NUR ---
SHIFT REPORT RECIEVED OUTSIDE OF ROOM DUE TO PATIENT BEING AGITATED. DESIGN DRAFTER CHIEF IS IN ROOM. PATIENT REQUIRES ONE ON ONE AT THIS TIME.
--- NOTE | 2017-07-18 20:00 | NUR ---
PATIENT REFUSED PART OF HER MEDICATIONS, INCLUDING GLUCOSE CHECK AND INSULIN. MD MADE AWARE. PATIENT IS VERY AGITATED AND REQUESTING STAFF LEAVES THE ROOM. SHE REQUESTED A KNIFE TO CUT HER OXYGEN TUBING WITH SO THAT SHE COULD LEAVE THE ROOM. PATIENT IS INSULTING STAFF AND BEING NONCOMPLIANT. EXPLAINED THAT i COULD LEAVE HER ALONE FASTER IF SHE WOULD BE COMPLIANT WITH NURSING CARE FOR A FEW MINS. PATIENT TOOK HER ORAL MEDICATIONS. PATIENT REFUSED VITAL SIGNS AND MD IS AWARE. PATIENT REFUSED HER ASSESSMENT. BILLING REPRESENTATIVE IS IN ROOM WITH PATIENT. AFTER MEDS WERE GIVEN AND IV ABX STARTED, PATIENT APPEARED TO BE CALMING DOWN. BILLING REPRESENTATIVE STAYED IN ROOM AND PATIENT AGREED TO STAY IN BED. PATIENT IS ON 4L NC. AND DENIES BEING IN PAIN.
--- NOTE | 2017-07-18 21:27 | NUR ---
ROUNDED ON PATIENT CHARGE. PATIENT IS AGGITATED. ELECTRONIC ASSEMBLER IN ROOM WITH PATIENT. PATIENT IS A ONE ON ONE AT THIS TIME.
--- NOTE | 2017-07-18 22:02 | NUR ---
WHEN I ENTERED PT'S ROOM, SHE WAS VERY AGITATED. SHE WAS UP WALKING AROUND THE ROOM. SHE DID NOT WANT TO SIT DOWN OR GO BACK TO BED. SHE WAS CONFUSED TO WHERE SHE WAS. I WAS ABLE TO ASSIST HER TO THE BED, WHERE SHE BECAME EVEN MORE AGITATED. SHE WAS PULLING OFF HER 02 AND WANTING SCISSORS TO CUT THE TUBING. I EXPLAINED TO HER IT WAS CONNECTED TO THE WALL AND GIVING HER 02. SHE CONTINUED TO GET UP AND DOWN, GETTING MORE AND MORE ANGRY. SHE DID NOT WANT ANYONE IN THE ROOM, SHE KEPT TELLING EVERYONE TO GET OUT! I WAS ABLE TO SIT IN THE CHAIR BESIDE HER FOR A LITTLE WHILE. PT THEN WAS TRYING TO GET UP AGAIN AND WONDER. I INFORMED HER SHE WAS HOOKED UP TO THE IV AND TO BE CAREFUL OR SHE WOULD PULL IT OUT. SHE CONTINUED TO TRY AND GET UP AND MOVE ALL AROUND IN HER BED.
--- NOTE | 2017-07-18 23:45 | NUR ---
PATIENT IS NOW PLEASANTLY CONFUSED. SHE REQUIRES FREQUENT REORIENTATION TO HER SURROUNDINS, SHE HAS ASKED TO "GO TO THE KITCHEN AND JUST HAVE A CIGARETTE". STAFF WAS ABLE TO CONVINCE HER TO REST IN BED. PATIENT MORE COMPLIANT WITH CARE BUT DOES NOT THINK SHE NEEDS TO BE IN THE HOSPITAL. BED ALARM ON. CALL LIGHT IN REACH.
--- NOTE | 2017-07-19 00:44 | NUR ---
PATIENT RESTING IN BED. EYES CLOSED. RR 16.
--- NOTE | 2017-07-19 02:45 | NUR ---
PATIENT ATTEMPTING TO GET OUT OF BED. ASSISTED HER TO THE BATHROOM. PATIENT APPEARS ANXIOUS, EASY TO REASSURE. PATIENT BACK IN BED. WHEEL TUNER IS 1 ON 1 WITH PATIENT AT THIS TIME. BED ALARM ON.
--- NOTE | 2017-07-19 03:46 | NUR ---
PATIENT CONTINUES TO REPEAT "HELP, HELP, HELP". PATIENT UNABLE TO DESCRIBE WHAT SHE NEEDS. PROVIDING PRN PAIN MEDS DUE TO RESTLESSNESS AND APPARENT DISCOMFORT.
--- NOTE | 2017-07-19 04:48 | NUR ---
PATIENT RESTING IN HER BED. EYES CLOSED. APPEARS CALM. RR 18.
--- NOTE | 2017-07-19 05:55 | NUR ---
PATIENT RESTED ON AND OFF THROUGHOUT THE NIGHT. PATIENT CONTINUED TO BE CONFUSED THROUGHOUT THE NIGHT, BUT WAS EXTREAMLY AGTATED AT TIMES AND PLEASANT AT OTHERS. PRN PAIN MEDS GIVEN X2. PRN ZOFRAN X1. PATIENT REPORTED NAUSEA BUT DID NOT VOMIT. PATIENT REFUSED GLUCOSE CHECKS LAST NIGHT AND ONLY LIMITED ASSESSMENTS WITH CONSENTED TO. PATIENT IS SBA W/FWW. ADA DIET, TOLERATING WELL. DAILY WEIGHT. MD AWARE OF PATIENTS REFUSALS.
--- NOTE | 2017-07-19 06:53 | NUR ---
PATIENT RESTING IN BED. EYES CLOSED. RR 16. APPEARS CALM. BED ALARM ON. CALL LIGHT IN REACH.
--- NOTE | 2017-07-19 07:30 | NUR ---
PATIENT REPORT FROM NIGHT NURSE THAT PATIENT HAD RESTLESS NIGHT. DISCUSSED LETTING PATIENT SLEEP IN THIS MORNING. MODIFIED ASSESMENT DONE THIS MORNING, PATIENT APPEARS CALM AND RESTING WITH EYES CLOSED.
--- NOTE | 2017-07-19 08:15 | NUR ---
PT IS RESTING IN BED SAFELY WITH EYES CLOSED, RESPERATIONS EVEN. CALL LIGHT IN REACH AND BED ALARM ON. PER NURSE PT IS NOT TO BE WOKEN UNITL SHE WAKES ON HER OWN.
--- NOTE | 2017-07-19 09:50 | NUR ---
PATIENT UP TO RECLINER, VOIDED WELL. THEN TO RECLINER, TRANSFERED WELL 1 PERSON ASSIST. PROVIDED FRESH ICE WATER, VS DONE. MORNING MEDICATIONS ADMINISTERED. PATIENT APPEARS TO BE MAKING REPETITIVE STATEMENTS " THIS MUFFIN IS GOOD, THIS MUFFIN IS GOOD, THAT IS AN OLD PICTURE, WOW THAT IS AN OLD PICTURE" PASTOR MARIANO REPORTED CONCERNS OF DECLINE WITH COGNITION TO DR. PATTON.
--- NOTE | 2017-07-19 10:27 | NUR ---
ASSISTED PT TO BATHROOM VIA WALKER. PT THEN WASHED FACE AND HANDS AT SINK. PT'S HAIR WAS COMBED AND GOWN CHANGED. PT THEN WALKED TO CHAIR AND IS NOW SITTING WITH FEET ELEVATED AND TAG ALARM ON. PT IS EATING HER BREAKFAST.
--- NOTE | 2017-07-19 12:27 | NUR ---
RT REPORTED TO THIS NURSE CONCERNS OF RALES IN LUNGS SOUNDING WORSE. DR. PATTON ROUNDED ON PATIENT, NEW ORDERS FOR CT OF HEAD AND XRAY OF CHEST. ALSO TO COLLECT UA WITH CHANGE OF COGNITION. PATIENT LEAVING FLOOR TO CT NOW. CBG 306, HAS NOT ATE LUNCH YET, WILL ADMINISTER INSULIN WHEN RETURNS TO FLOOR.
--- NOTE | 2017-07-19 12:53 | NUR ---
PT SITTING IN CHAIR EATING A MUFFIN THAT SHE SEEMED TO BE REALLY ENJOYING. IN FACT SHE REPEATEDLY REMARKED ABOUT THE MUFFIN. I NOTICED A DECLINE IN HER COGNITIVE ABLILTIES FROM RECENT VISITS. SHE REPEATS SEVERAL THINGS OVER OFTEN: "THIS IS REALLY OLD" REFERRING TO A PICTURE IN HER RM, WHICH I INFORMED HER WAS TAKEN BY A LOCAL DIRECTOR OF EVENTS. SHARED THIS WITH KATE WEBB. PT REQUESTED PRAYER, WILL CONTINUE TO FOLLOW NEEDED
--- NOTE | 2017-07-19 13:59 | NUR ---
PT IS RESTING IN BED SAFELY WITH EYES CLOSED, RESPERATIONS EVEN. CALL LIGHT IN REACH AND BED ALARM ON. PER NURSE PT WAS NOT WOKEN UP FOR VITALS, WILL WAIT TO THEM WHEN SHE WAKES UP ON HER OWN.
--- NOTE | 2017-07-19 14:01 | NUR ---
Mr Marsh was receptive to information and demonstrated understanding with teach back. Patient unable to participate in education. He states she typically cooks at home and is active in the garden. She reads books.He reminds her to take medications and they have a weekly pillbox. All meds are through one pharmacy-[facility]. Patient is a smoker and has not expressed interest in cessation. They Do not own scales but he agrees to purchase prior to patient returning home. PHQ-9 and Mini-cog screenings not completed due to patient's underlying cognitive impairment and recent confusion. Heart failure booklet, zones form, and daily weight form given to spouse. He agrees to receive follow up call from cardiac nurse post discharge to home.
--- NOTE | 2017-07-19 14:30 | NUR ---
PT CARE CONFERENCE PT , PT, DR PATTON, MYSELF (CASE MANAGEMENT) IN TO TALK WITH PT ABOUT PT CONDITION AND CONCERNS ABOUT PLACEMENT. TALKED WITH HOMERO PT HUS ABOUT SNF AND WHAT IS EXPECTED IN THESE FACILITIES AND THAT THEY PROBABLY WOULD NOT BE ABLE TO TAKE HER BECAUSE SHE HAS NEEDED ONE ON ONE SUPERVISION FOR SEVERAL DAYS AND IT IS NOT IMPROVING. TALKED WITH HIM ABOUT MED MANAGEMENT OF THIS PT. DR PATTON TOLD HIM THE DELIUM IN POSS NOT GOING TO IMPROVE. HOMERO SHAKING HIS HEAD STATING HE DOESN'T KNOW WHAT TO DO WITH HER, STATES HIS SONS WILL BE IN AROUND NOON ON SATURDAY AND COULD WE ALL TALK ABOUT THIS WHEN THEY ARE HERE. TOLD THEM WE COULD AND THAT THIS WOULD BE CONT ON SATURDAY.
--- NOTE | 2017-07-19 14:30 | NUR ---
PATIENT CT AND CHEST XRAY NEGATIVE, DR. PATTON SAID TO KEEP PATIENT AWAKE IN DAY TIME HOURS. PATIENT APPEARS COMFORTABLE, PLEASANTLY CONFUSED.
--- NOTE | 2017-07-19 15:45 | NUR ---
COLLECTED STRAIGHT CATH UA, RESULTS NEGATIVE. PATIENT TOLERATED WELL. UP TO BATHROOM VOIDING WELL. NO COMPLAINTS OF PAIN AT THIS TIME, NOTED RALES IN LUNG MARTIN THROUGHOUT. VS STABLE.
--- NOTE | 2017-07-19 18:31 | NUR ---
PT IS SITTING UP IN BED WATHCING TV. CALL LIGHT IN REACH AND BED ALARM ON.
--- NOTE | 2017-07-19 19:15 | NUR ---
SHIFT REPORT RECIEVED. PATIENT RESTING IN BED. EYES CLOSED. APPEARS CALM. WAKES TO VOICE, NO NEEDS AT THIS TIME. BED ALARM ON. CALL LIGHT IN REACH.
--- NOTE | 2017-07-19 20:06 | NUR ---
EVEING MEDS GIVEN AND PATIENT ASSESSMENT COMPLETE. PATIENT IS PLESANT, DROWSEY, AND COMPLIANT WITH CARE. PATIENT IS ORIENTED TO SELF ONLY. PATIENT DENIES PAIN OR NAUSEA. WHEEZES NOTED IN THE UPPER LOBES BILATERALLY AND DRY RUB IN LOWER LOBES BILATERALLY. PATIENT IS 91% ON 4L NC. HOB ELEVATED. PATIENT DOES NOT FOLLOW COMMANDS WELL ENOUGH TO USE ACAPELLA CORRECTLY. WILL CONTINUE TO REINFORCE. ABD IS MILDLY DISTENDED, NONTENDER, AND BOWEL SOUNDS ARE ACTIVE. LEFT LOWER EXTREMITY HAS 2+ PITTING EDEMA. PEDAL PULSES ARE WEAK/THREADY BILATERALLY. RT IN ROOM FOR EVENING BREATHING TREATMENTS. PATIENT DENIES TOILETING NEEDS AT THIS TIME. CALL LIGHT IN REACH. BED ALARM ON.
--- NOTE | 2017-07-19 22:00 | NUR ---
PATIENT IS YELLING, SPEECH IS INAPPROPRIATED. TECHNICAL PROPOSAL WRITER IN ROOM FOR 1 ON 1.
--- NOTE | 2017-07-19 23:00 | NUR ---
PATIENT RESTING, EYES CLOSED. RR16. BED ALARM IS ON. CALL LIGHT IN REACH.
--- NOTE | 2017-07-20 | NUR ---
PATIENT REQUESTED PRN PAIN MEDS FOR 4/10 PAIN IN HER BACK. PATIENT UP TO THE BATHROOM. IV ABX ADMINISTERED PER ORDERS. NO FURTHER NEEDS.
--- NOTE | 2017-07-20 01:30 | NUR ---
PATIENT GETTING OUT OF BED WITHOUT USING CALL LIGHT. PATIENT ASSISTED TO THE BATHROOM. SBA W/FWW. PATIENT IS DISORIENTED TO ALL BUT SELF, BUT IS PLESANT. PATIENT REQUEST TO SIT ON EDGE OF BED AND HAVE SOME TEA, WHICH WAS PROVIDED TO HER. BED ALARM ON. CALL LIGHT IN REACH.
--- NOTE | 2017-07-20 03:30 | NUR ---
PATIENT IS AWAKE IN THE ROOM. RAG ROOM SUPERVISOR IS ONE ON ONE WITH PATIENT. CONTINUES TO REDIRECT HER, BECUASE THE PATIENT HAS BEEN REQUESTING TO LEAVE. PATIENT IS ONLY MILDLY AGITATED AT THIS TIME.
--- NOTE | 2017-07-20 05:21 | NUR ---
PATIENT RESTED ON AND OFF THROUGHOUT SHIFT. PATIENT HAD EPISODES OF AGITATION AND WAS 1:1 WITH STAFF WHEN AWAKE. PATIENT DENIES PAIN. PATIENT ON 4L NC, O2 >88%. SBA W/FWW. ACTIVITY INTOLERANT. BED ALARM REQUIRED.
--- NOTE | 2017-07-20 06:11 | NUR ---
PATIENT IS WANTING TO LEAVE AND WILL NOT STAY IN BED OR THE CHAIR. SPLUNK ARCHITECT IS 1 ON 1 WITH PATIENT.
--- NOTE | 2017-07-20 06:27 | NUR ---
LAB IN ROOM FOR MORNING BLOOD DRAW. PATIENT REQUIRES ONE ON ONE WITH PUNCH PRESS FEEDER. PATIENT REQUESTING TO LEAVE. BECOMING MORE AGITATED.
--- NOTE | 2017-07-20 06:52 | NUR ---
I SPENT ABOUT 3-4 HRS IN PT ROOM OFF AND ON THROUGH THE NIGHT DUE TO THE FACT THAT SHE WAS WANTING TO GET UP AND WONDER AROUND. SHE KEPT REMOVING HER 02 OFF AND ON DURING THIS TIME WELL. PT WOULD BE VERY PLEASANT TO TALK WITH, BUT IN A MOMENTS NOTICE SHE WOULD CHANGE HER MOOD TO BEING ANGRY AND COMBATIVE. I TOOK HER FOR A WALK AROUND IN HER ROOM AND ALSO DOWN THE [place]. WE WERE WALKING BACK TO HER ROOM SHE GOT VERY ANGRY AT ME FOR NOT TAKING HER HOME. SHE WANTED TO GET HER STUFF AND GO HOME THEN. AFTER WE GOT BACK TO HER ROOM I WAS ABLE TO GET HER TO SIT ON HER BED. SHE THEN PROCEEDED TO CALL ME NAMES, SO I HAD AN RN GO INTO HER ROOM AND I LEFT, NOT WANTING TO UPSET HER MORE.
--- NOTE | 2017-07-20 06:52 | NUR ---
1:1 SINCE 06 TIL 0645, PT ROAMED IN ROOM, WANTING TO CLEAN HER CARPET, GOING TO BOWL, NOT ORIENTATED MOSTLY, ALTHOUGH SHE SPOKE OF BEING IN THE HOSPITAL FOR A LOT OF DAYS. REDIRECTABLE SOMEWHAT ABOUT NOT LEAVING TO GO HOME, TOOK HER PILLOWCASES OFF PILLOWS, TO "PACK", WANTED TO TAKE THE SHEETS OF THE BED BUT REDIRECTED AND LEFT THEM ALONE. ENCOURAGED PT TO LAY DOWN "TO PREVENT LEGS FROM SWELLING", SHE AGREED, WARM BLANKETS PROVIDED, CURRENTLY EYES CLOSED, RESP EVEN AND UNLABORED, BED ALARM AND OXYGEN ON.
--- NOTE | 2017-07-20 07:30 | NUR ---
PATIENT UP AMBULATING IN HALLS WITH THIS NURSE. APPEARS RESTLESS AND AGITATED. AMBULATED 1 LAP IN HALLS AND THEN CALLED FOR BREAKFAST. PROVIDED PATIENT WITH MAGAZINES AND MORNING MEDICAITONS. PATIENT NOW APPEARS LESS AGITATED, SMILING. VS STABLE.
--- NOTE | 2017-07-20 10:00 | NUR ---
PATIENT UP TO SHOWER AFTER WORKING WITH PHYSICAL THERAPY, REDIRECTED PATIENT'S NEGATIVE BEHAVIOR WITH DISCUSSION OF AND KIDS. PATIENT ASSISTED WITH SHOWER, STANDING TALL. PATIENT TO RECLINER AFTER SHOWER, TOLERATED WELL. FAMILY AND SONS TO ROOM, REQUESTS TO CALL [facility] FOR CARE CONFERENCE, DR. PATTON SAID THAT WOULD CALL [facility] THROUGH CONFERENCE CALL IF HER INPUT WAS NEEDED. PATIENT SITTING UP CONVERSING WITH FAMILY. TAB ALARM ON.
--- NOTE | 2017-07-20 13:10 | NUR ---
PATIENT CARE CONFERENCE WITH THIS NURSE AND DR. PATTON, PATIENT'S AND TWO SONS, AND SISTER IN LAW. DR. PATTON DISCUSSED WITH FAMILY THE NEEDS OF SENIOR CARE, ALSO DISCUSSED THE ADVERSE REACTIONS OF MEDICATIONS NEEDED TO ASSIST WITH CONTROLLING PATIENT'S BEHAVIOR AND AGITATION. FAMILY VERBALIZED UNDERSTANDING, AND AGREED THAT MEDICATION SIDE EFFECTS WOULD BE BETTER THEN PATIENT BEING AGITATED. PATIENT'S SIGNED FOR PATIENT TO BE DNR/DNI. DR. PATTON EXPLAINED IN DEPTH THE RISKS AND INJURIES IN CONJUCTURE WITH THE PATIENT'S CO-MORBIDITIES. FAMILY VERBALIZED UNDERSTANDING. ALL QUESTIONS AND CONCERNS WERE ADDRESSED. [facility] PROPERTY FIELD ADJUSTER WAS CONFERENCED IN FOR QUESTIONS IN REGARDS TO FINANCIAL ASPECTS OF PATIENT LIVING IN SKILLED FACILITY. [facility] ENCOURAGED PATIENT'S FAMILY TO APPLY FOR MEDICAID TO COVER THE PORTION MEDICARE DOES NOT COVER AFTER THE INITIAL [address] PATTON ALSO DISCUSSED OPTIONS OF PATIENT GOING TO COMFORT AND EVENTUALLY TO HOSPICE IF CONTINUES TO HAVE NO IMPROVEMENTS IN COGNITION. THE DELIRIUM THAT PATIENT IS EXPERIENCING WAS DISCUSSED IN GREAT DETAIL, AND AGAIN ALL QUESTIONS AND CONCERNS WERE ADDRESSED. CARE MEETING LASTED 70 MINUTES, AT THE END OF THE MEETING THIS NURSE PROVIDED THE NUMBER FOR [facility]'S OFFICE AND ADULT SERVICES TO THE FAMILY. PATIENT APPEARS TO VERBALIZE UNDERSTANDING TO THE NEED TO BE MOVED TO A SENIOR CARE FACILITY. FAMILY OKAYED FOR DR. PATTON TO BEGIN ADJUSTING MEDICAITONS TO HELP CONTROL AGITATION, WITH THE GOAL THAT PATIENT WOULD NO LONGER NEED 1:1 CARE, AND WOULD SLEEP DURING THE NIGHT.
--- NOTE | 2017-07-20 14:00 | NUR ---
PATIENT'S NOON DOSE OF INSULIN WAS MISSED, SECONDARY TO CARE CONFERENCE AND MISCOMMUNICATION AMONG NURSING STAFF. DR. POOJA QUEEN. PROVIDED INSTRUCTION TO WAIT 2 HOURS POST EATING TO RECHECK BLOOD SUGAR AND ADMINISTER PER SLIDING SCALE. THEN CONTINUE WITH EVENING DOSING LONG 2 HOURS FROM LAST DOSE OF INSULIN. PATIENT NOW UP AMBULATING IN HALLS, APPEARS STEADY ON FEET. AWAKE, BUT PLEASANLTY CONFUSED. STATES " I WANT TO MAKE SANDWHICHES FOR THE CORRECTION, SO EVERYONE CAN EAT"
--- NOTE | 2017-07-20 14:57 | NUR ---
[facility] WITH CALL LIGHT IN REACH AND TAG ALARM ON
--- NOTE | 2017-07-20 15:30 | NUR ---
PT WAS RESTLESS AND WAS ATTEMPTING TO LEAVE. JERRI CHEEMA AND I WALKED PT OUT IN HALLWAY. PT DID ONE FULL LAP THEN RETURNED TO ROOM. PT IS NOW RESTING IN BED SAFELY WITH CALL LIGHT IN REACH AND BED ALARM ON
--- NOTE | 2017-07-20 16:00 | NUR ---
PATIENT UP TO BATHROOM, APPEARS STEADY ON FEET. CBG RECHECKED AND INSULIN ADMINISTERED. PATIENT SNACKING ON CUT APPLES, PROVIDED PATIENT WITH DIET COKE. PATIENT NOW RESTING BACK IN BED READING NEWSPAPER. APPEARS CALM, AND PLEASANT.
--- NOTE | 2017-07-20 18:00 | NUR ---
PATIENT STATED, " I AM READY TO GO HOME NOW PLEASE" EXPLAINED TO PATIENT THE NEED TO STAY AT HOSPITAL. PATIENT APPEARED TO AGREE WITH POC. NO COMPLAINTS OF PAIN. PATIENT STATES " CAN I GO FOR A WALK?" PATIENT UP AMBULATING IN HALLS. 4L NC, O2 SATURATION 95%. PATIENT MEDICATION DOSAGES HAVE BEEN INCREASED, NEW ORDER FOR PERCOCET.
--- NOTE | 2017-07-20 18:44 | NUR ---
PATIENT APPEARED AGITATED IN THE MORNING, HOWEVER DAY PROGRESSED WAS MORE PLEASANT. PROVIDED PATIENT SHOWER, AND AMBULATED IN HALLS FREQUENTLY THROUGHOUT DAY. PATIENT REPORTED MULTIPLE TIMES THE NEED FOR TOBACCO PRODUCTS. REMINDED PATIENT NICOTINE PATCH WAS ON. CARE CONFERENCE WITH FAMILY TODAY, NOW DNR/DNI. MEDICATIONS ADJUSTED TO HELP CONTROL AGITATION. GOAL IS FOR PATIENT TO NOT BE A 1:1 AND BE ABLE TO SLEEP AT NIGHT, POSSIBLE DISCHARGE TO [facility] SATURDAY OR SATURDAY.
--- NOTE | 2017-07-20 19:00 | NUR ---
SHIFT REPORT RECIEVED. PATIENT IN BED RESTING. IS IN ROOM. NO NEEDS AT THIS TIME. BED ALARM ON.
--- NOTE | 2017-07-20 19:30 | NUR ---
PATIENT REQUEST PAIN MEDS FOR PATIENT. PATIENT REPORTED 8/10 PAIN IN HER BACK AND HIPS. PRN PAIN MEDS PROVIDED PER ORDERS. HEAT PACK PROVIDED AND PATIENT REPOSITIONED FOR COMFORT. AT BEDSIDE. BED ALARM ON.
--- NOTE | 2017-07-20 20:00 | NUR ---
EVENING MEDS GIVEN PER ORDER. PATIENT ASSESSMENT COMPLETE. PATIENT IS ORIENTED TO SELF ONLY. PATIENT IS PLESANT AND COMPLIANT WITH CARE. EASY TO REDIRECT. PATIENT HAS A LOOSE COUGH, LUNG SOUNDS ARE COURSE THROUGHOUT WITH WHEEZES IN THE LOWER BASES BILATERALLY. PATIENT IS ON 3L NC, O2 SAT >88%. PATIENT DENIES NAUSEA AND IS REQUESTING SNACKS, WHICH WERE PROVIDED. BOWEL SOUNDS ARE ACTIVE, ABD IS SOFT AND NONTENDER. LOWER EXTREMITIES ARE 2+ PITTING EDEMA AND FEET HAVE 3+ PITTING EDEMA. CMS INTACT. PATIENT IN BED WITH BED ALARM ON. CALL LIGHT IN REACH.
--- NOTE | 2017-07-20 21:00 | NUR ---
PATIENT HAS GOTTEN OUT OF BED X3 IN LAST 30MINS WITHOUT CALLING FOR HELP. ASSISTED PATIENT TO THE BATHROOM. REPOSITIONED HER WITH HEAT PACK. SHE REPORTS THE PAIN IN HER BACK IS BETTER NOW AFTER PRN PAIN MEDS. PATIENT IS PLESANTLY CONFUSED AND CONTINUES TO GET OUT OF BED "TO GO TO BED" SHE STATES. ENCOURAGED PATIENT TO USE THE BED PROVIDED AND SHE AGREED. PATIENT IN BED WITH BED ALARM ON.
--- NOTE | 2017-07-20 21:20 | NUR ---
PRN MEDS GIVEN FOR INSOMNIA. PATIENT IS UNABLE TO SLEEP. SHE IS RESTING IN BED. BED ALARM ON.
--- NOTE | 2017-07-20 22:00 | NUR ---
PATIENT IS RESTING IN BED, EYES CLOSED, AND SNORING HEAR. RR18. BED ALARM ON.
--- NOTE | 2017-07-21 00:01 | NUR ---
PATIENT IS RESTING IN BED. EYES CLOSED. RR16. CALL LIGHT IN REACH. BED ALARM ACTIVATED.
--- NOTE | 2017-07-21 01:18 | NUR ---
PATIENT EXITED THE BED WITHOUT CALLING FOR ASSISTANCE. ASSISTED PATIENT TO BSC. LINENS WERE CHANGED AND NEW GOWN PROVIDED. PATIENT ASSISTED BACK TO BED. BED ALARM ON. CALL LIGHT ON.
--- NOTE | 2017-07-21 04:05 | NUR ---
PATIENT RESTING. EYES CLOSED. RR 15. BED ALARM ON. CALL LIGHT IN REACH.
--- NOTE | 2017-07-21 06:27 | NUR ---
PT SLEEPING SOUNDLY. VS DEFERRED. NURSE AND CHARGE NURSE AWARE.
--- NOTE | 2017-07-21 06:40 | NUR ---
PATIENT RESTING. EYES CLOSED. RR16. BED ALARM ON.
--- NOTE | 2017-07-21 08:00 | NUR ---
PATIENT SETTING OFF BED ALARM, UPON ENTERING ROOM REQUESTED TO WALK AROUND. PATIENT STATED " I AM HUNGRY AND HAVE NO FOOD" MADE SURE BREAKFAST WAS ORDERED AND ON THE WAY. REASSURED PATIENT, AMBULATED TO BATHROOM. NO COMPLAINTS OF PAIN THIS MORNING. LUNG SOUNDS COURSE THROUGHOUT. ANSWERING QUESTIONS APPROPRIALTEY. [facility]. PATIENT STATES " I SLEPT WELL LAST NIGHT".
--- NOTE | 2017-07-21 08:23 | NUR ---
PATIENT IN CHAIR DOING WELL. CALLS FREQUENTLY. WHITEBOARD UPDATED, ROOM TIDIED.
--- NOTE | 2017-07-21 10:36 | NUR ---
Patient stated she wanted a bedbath, I went in to do it and she stated that she absolutely did not want one. Will recheck in a few minutes.
--- NOTE | 2017-07-21 10:44 | NUR ---
DISCUSSED WITH PATIENT AND STAFF IMPORTANCE OF BEING UP AND ACTIVE THROUGHOUT DAY. BLINDS OPENED AND LIGHTS ON IN ROOM. PROVIDED PATIENT WITH NEWSPAPERS AND SAFE SCISSORS TO CUT COUPONS OUT OF PAPER. PATIENT NOW WORKING WITH PHYISCAL THERAPY, AMBULATED IN [place]. APPEARED TO TOLERATE WELL.
--- NOTE | 2017-07-21 11:53 | NUR ---
PATIENT REFUSES TO BE UP IN RECLINER, STATES " I HATE HATE HATE THAT RECLINER." IS STAYING AWAKE IN BED, READING NEWSPAPER AND WATCHING TELEVISION. STATES " I JUST WANT TO EAT AND SLEEP, AND THEN GO HOME ON SATURDAY". PATIENT APPEARS TO HAVE IMPROVED MOOD, AND APPEARS LESS AGITATED. COGNITION APPEARS IMPROVED, PATIENT IS NOT SAYING MANY INAPPROPRIATE PHRASES, AND APPEARS TO BE ALERT TO PERSON AND PLACE AND SURROUNDINGS.
--- NOTE | 2017-07-21 13:00 | NUR ---
PATIENT UP TO BATHROOM. AMBULATED LOOP IN HALLS. APPEARS PLEASANTLY CONFUSED. EASILY REDIRECTED. PATIENT NOW SITTING AT EDGE OF BED, APPEARS COMFORTABLE. PROVIDED PATIENT WITH DIET COKE. NO COMPLAINTS OF PAIN. 93% NC 3L.
[2017-07-21] MEDS ORDERED: PERCOCET 5-3251 EACH PO (14:52)
[2017-07-21] MEDS ORDERED: OLANZAPINE ODT20 MG PO (14:52)
[2017-07-21] MEDS ORDERED: ZALEPLON5 MG PO (14:52)
--- NOTE | 2017-07-21 16:24 | NUR ---
AMBULATED PATIENT IN HALLS, TOLERATED WELL. PATIENT APPEARS PLEASANT, STATES " THEY HAVE THE BEST FOOD HERE" PROVIDED PATIENT WITH COMPLIMENT CARDS, PATIENT APPEARS ALERT TO PERSON AND PLACE. PLEASANT CONVERSATION. VISITED WITH SOME JENNIFER, PATIENT VERY PLEASANT CONVERSING WITH HIM. PATIENT STATES " I HAVEN'T SEEN HER THIS HAPPY SINCE SHE HAS BEEN ADMITTED TO THE HOSPITAL". PATIENT USING CALL LIGHT MOST OF THE TIME WHEN GETTING UP OUT OF BED, OR WILL SIGNAL SOMEONE INTO THE ROOM WHEN ASSISTANCE IS NEEDED.
--- NOTE | 2017-07-21 18:17 | NUR ---
PATIENT APPEARS LESS AGITATED, NO COMPLAINTS OF PAIN. STATES " I AM FEELING GOOD" APPEARS APPRORIATE WITH CONVERSATION, PLEASANTLY CONFUSED. ALERT TO PERSON AND PLACE. PATIENT CALLING MOST OF TIME. HAS BEEN AWAKE THROUGHOUT DAY, NOTED INCREASED EDEMA TO ANKLES FAUSTINA 2+. DR. PATTON AWARE, MAY ATTEMPT TO PLACE [facility] [facility].
--- NOTE | 2017-07-21 18:50 | NUR ---
[facility] PLACED, WITHOUT DIFFICUTLY, PATIENT AGREEABLE WITH TREATMENT. PROVIDED LOTION TO FEET. PATIENT SAID ' THANK YOU, CAN I PLEASE HAVE THE LIGHTS OFF TO GO TO SLEEP". PATIENT APPEARS PLEASANT AND COMFORTABLE.
--- NOTE | 2017-07-21 20:17 | NUR ---
PT LAYING IN BED, WATCHING TV. PT CONFUSED AT TIMES, RE-DIRECTS WELL. PT ANXIOUS IN REGARDS TO HER WHEREABOUTS, RE-ORIENTED PT TO TIME, PLACE, AND EVENT. MEDS GIVEN. PT RATES PAIN IN HER LOWER BACK AT 8/10, GAVE PERCOCET FOR PAIN. PT HAS A GRUFF DEMEANOR. CALL LIGHT IN REACH. BED ALARM ON.
--- NOTE | 2017-07-21 22:47 | NUR ---
PT AMBULATED IN HALLWAY WITH STAFF FOR PT SAFETY. PORTABLE OXYGEN IN PLACE.
--- NOTE | 2017-07-21 23:31 | NUR ---
PT REFUSING OXYGEN, CONTINUES TO BE RESTLESS TONIGHT. NOTIFIED DR PATTON, NEW ORDERS RECIEVED.
--- NOTE | 2017-07-22 01:03 | NUR ---
PT REMAINS AWAKE, IN AND OUT OF BED. PT IN BED NOW, CLOSE MONITORING REQUIRED FOR SAFETY. PT GRABBING LEG AND YELLING OUT, STATING "ITS CRAMPING, OH MY LEG HURTS SO BAD. GAVE PERCOCET FOR PAIN.
--- NOTE | 2017-07-22 02:05 | NUR ---
PT REMAINS AGITATED, IN AND OUT OF BED. INCREASED CONFUSION, NOT RE-ORIENTING. PT REQUIRING CLOSER MONITORING BY STAFF. NEW ORDERS RECIEVED.
--- NOTE | 2017-07-22 03:44 | NUR ---
PT RESTING QUIETLY. RR WNL AND UNLABORED.
--- NOTE | 2017-07-22 06:32 | NUR ---
pt resting quielty, appears asleep. rr wnl and unlabored. nc in place.
--- NOTE | 2017-07-22 07:33 | NUR ---
BEDSIDE REPORT FROM TRISTA RN. PT RESTING QUIETLY IN BED RR EVEN 16 BPM NO DISTRESS NOTED. PT APPEARS TO BE SLEEPING
--- NOTE | 2017-07-22 08:15 | NUR ---
PATIENT RESTING IN BED WITH EYES CLOSED.
== END 2017-07-22 09:30 | disposition swing bed (61) | DRG 291 ==
LOC: ED 04:22 → CCU 06:22 → MS 18:34 → CCU 07-14 12:50 → MS 07-17 18:36
PROVIDERS: ADMIT Internal Medicine
PROC: 5A09357 Assistance with Respiratory Ventilation, Less than 24 Consecutive Hours, Continuous Positive Airway Pressure (ICD-10-PCS; principal; 2017-07-14)
DX: I11.0 Hypertensive heart disease with heart failure (principal); J96.21 Acute and chronic respiratory failure with hypoxia; J18.9 Pneumonia, unspecified organism; G93.41 Metabolic encephalopathy; J96.22 Acute and chronic respiratory failure with hypercapnia; J44.0 Chronic obstructive pulmonary disease with (acute) lower respiratory infection; J44.1 Chronic obstructive pulmonary disease with (acute) exacerbation; G93.1 Anoxic brain damage, not elsewhere classified; F03.91 Unspecified dementia, unspecified severity, with behavioral disturbance; I50.33 Acute on chronic diastolic (congestive) heart failure; I48.0 Paroxysmal atrial fibrillation; G40.909 Epilepsy, unspecified, not intractable, without status epilepticus; G25.81 Restless legs syndrome; F39 Unspecified mood [affective] disorder; R45.1 Restlessness and agitation; E11.65 Type 2 diabetes mellitus with hyperglycemia; Z66 Do not resuscitate; Z79.84 Long term (current) use of oral hypoglycemic drugs; Z88.0 Allergy status to penicillin; Z88.2 Allergy status to sulfonamides; F17.210 Nicotine dependence, cigarettes, uncomplicated
CPT/HCPCS: 36415; 36600; 70450; 71010; 71020; 80048; 80053; 80069; 81001; 82803; 83735; 83880; 84100; 84484; 85025; 85610; 94640; 94660; 94667; 94668; 94760; 94762; 97110; 97116; 97162; 97530; J0692; J1630; J1650; J1953; J1956; J2060; J2270; J2405; J2930; J3475; J3480; J7060; J7120; J7512

== ENCOUNTER 2017-07-22 09:30 | Inpatient (IN) | payer MEDICARE, BC ==
[~2017-07-22] VITALS: Ht 170.2 cm; Wt 60.9 kg
[~2017-07-22 09:30] MED LIST changes: +OLANZAPINE ODT20 MG PO; +ZALEPLON5 MG PO
--- OUTSIDE RECORDS SUMMARY | 2017-07-24 07:44 | XMS | Clinical Summary ---
Demographics + + + | Address | [address] | | | [place] [address] | + + + | Home Phone | | + + + | Preferred Language | Unknown | + + + | Marital Status | | + + + | Temple Affiliation | None | + + + | Race | White | + + + | Ethnic Group | Not or | + + + Author + + + | Author | [facility] | + + + | Organization | [facility] | + + + | Address | Unknown | + + + | Phone | Unavailable | + + + Support + + + + + | Name | Relationship | Address | Phone | + + + + + | SALMA RICHARD | [address] | | | | | | [place] | | | | | [phone] | | + + + + + Care Team Providers + +------+ + | Care Rack Washer Name | Role | Phone | + +------+ + | Darien Peña MD | PP | | + +------+ + Allergies + + + + + + | Active Allergy | Reactions | Severity | Noted | Comments | | | | | Date | | + + + + + + | Penicillins | Hives | Medium | 11/22/19 | | | | | | 15 | | + + + + + + | Zolpidem | Other (See Comments) | Low | 09/17/19 | Pt becomes | | | | | 16 | disoriented and | | | | | | impulsive | + + + + + + | Codeine | Nausea Only | Low | 11/22/19 | | | | | | 15 | | + + + + + + Current Medications + + + +---------+------+------+-------+ | Prescription | Sig. | Disp. | Refills | Star | End | Statu | | | | | | t | Date | s | | | | | | Date | | | + + + +---------+------+------+-------+ | metFORMIN | Take 500 mg by mouth | | | | | Activ | | (GLUCOPHAGE) 500 mg | 2 times daily (with | | | | | e | | tablet | meals) | | | | | | + + + +---------+------+------+-------+ | rOPINIRole | Take 2 mg by mouth | | | | | Activ | | (REQUIP) 1 mg tablet | at bedtime | | | | | e | + + + +---------+------+------+-------+ | beclomethasone | Inhale 2 puffs into | | | | | Activ | | (QVAR) 80 | the lung 2 times | | | | | e | | mcg/actuation | daily | | | | | | | inhaler | | | | | | | + + + +---------+------+------+-------+ | cyclobenzaprine | Take 10 mg by mouth | | | | | Activ | | (FLEXERIL) 10 mg | 3 times daily as | | | | | e | | tablet | needed for Muscle | | | | | | | | spasms | | | | | | + + + +---------+------+------+-------+ | | Take 1 tablet by | | | | | Activ | | HYDROcodone-acetamin | mouth 2 times daily | | | | | e | | ophen (NORCO) 5-325 | as needed for Pain | | | | | | | mg per tablet | | | | | | | + + + +---------+------+------+-------+ | atorvastatin | Take 40 mg by mouth | | | | | Activ | | (LIPITOR) 40 mg | daily | | | | | e | | tablet | | | | | | | + + + +---------+------+------+-------+ | carvedilol (COREG) | Take 25 mg by mouth | | | | | Activ | | 25 mg tablet | 2 times daily | | | | | e | + + + +---------+------+------+-------+ | nabumetone | Take 750 mg by mouth | | | | | Activ | | (RELAFEN) 750 mg | 2 times daily | | | | | e | | tablet | | | | | | | + + + +---------+------+------+-------+ | levETIRAcetam | Take 750 mg by mouth | | | | | Activ | | (KEPPRA) 750 mg | 2 times daily | | | | | e | | tablet | | | | | | | + + + +---------+------+------+-------+ | albuterol | Inhale 2 puffs into | | | | | Activ | | (PROVENTIL/VENTOLIN/ | the lung every 4 | | | | | e | | PROAIR) 90 | hours as needed | | | | | | | mcg/actuation | (q4-6h PRN) | | | | | | | inhaler | | | | | | | + + + +---------+------+------+-------+ | predniSONE | Take 1 tablet (20 mg | 10 | 0 | 01/0 | | Activ | | (DELTASONE) 20 mg | total) by mouth | tablet | | 2/20 | | e | | tablet | daily | | | 16 | | | + + + +---------+------+------+-------+ | insulin glargine | Inject 10 Units into | 1 vial | 0 | 01/0 | | Activ | | (LANTUS) 100 unit/mL | the skin daily | | | 2/20 | | e | | injection | | | | 16 | | | + + + +---------+------+------+-------+ | insulin aspart | Inject 2-16 Units | 1 vial | 0 | 01/0 | | Activ | | (NOVOLOG) 100 | into the skin 4 | | | 2/20 | | e | | unit/mL injection | times daily (with | | | 16 | | | | | meals and nightly) | | | | | | + + + +---------+------+------+-------+ Active Problems + + + | Problem | Noted Date | + + + | Acute on chronic respiratory failure with hypoxemia (H[facility]) | 09/11/2015 | + + + | Diabetes mellitus type 2 in obese ([facility]) | 09/11/2015 | + + + | Seizure disorder ([facility]) | 09/11/2015 | + + + Immunizations + + + + | Name | Dates Previously Given | Next Due | + + + + | Influenza High-dose | 09/17/2015 | | + + + + | Pneumovax | 09/16/2012 | | + + + + Social History + +-------+ +--------+------+ | Tobacco Use | Types | Packs/Day | Years | Date | | | | | Used | | + +-------+ +--------+------+ | Current Every Day | | 0.25 | 50 | | | Smoker | | | | | + +-------+ +--------+------+ + + +---------+ + | Alcohol Use | Drinks/We | oz/Week | Comments | | | ek | | | + + +---------+ + | No | | | | + + +---------+ + + + + | Sex Assigned at | Date Recorded | | | | + + + | Not on file | | + + + Last Filed Vital Signs + + + + | Vital Sign | Reading | Time Taken | + + + + | Blood Pressure | 184/75 | 09/17/2015 7:45 AM PST | + + + + | Pulse | 81 | 09/17/2015 7:18 AM PST | + + + + | Temperature | 37.1 C (98.8 F) | 09/17/2015 7:45 AM PST | + + + + | Respiratory Rate | 18 | 09/17/2015 7:45 AM PST | + + + + | Oxygen Saturation | 88% | 09/17/2015 7:45 AM PST | + + + + | Inhaled Oxygen | - | - | | Concentration | | | + + + + | Weight | 72.5 kg (159 lb 12.8 | 09/17/2015 4:48 AM PST | | | oz) | | + + + + | Height | 167.6 cm (5' 6") | 09/11/2015 1:40 AM PST | + + + + | Body Mass Index | 25.79 | 09/17/2015 4:48 AM PST | + + + + Plan of Treatment + + + + + | Health Maintenance | Due Date | Last Done | Comments | + + + + + | Eye Exam Chronic | | | | | Disease | 2 | | | + + + + + | Foot Exam | | | | | | 2 | | | + + + + + | Microalbuminuria | | | | | | 2 | | | + + + + + | Lipid Screening | | | | | | 2 | | | + + + + + | Tetanus | | | | | | 1 | | | + + + + + | Zoster Vaccine | | | | | | 2 | | | + + + + + | Dexascan | | | | | | 7 | | | + + + + + | Pneumo 65+ (2 of 2 - | | 09/16/2012 | | | PCV13) | 4 | | | + + + + + | Hemoglobin A1c | | 09/13/2015 | | | | 6 | | | + + + + + | IMM Influenza (#1) | | 09/17/2015 | | | | 7 | | | + + + + + Results Not on filefrom Last 3 Months Insurance + +--------+ +--------+ + + | Payer | Benefi | Subscriber | Type | Phone | Address | | | t Plan | ID | | | | | | / | | | | | | | Group | | | | | + +--------+ +--------+ + + | MEDICARE | MEDICA | [id number] | Medica | [phone] [address] | | | RE A & | | re | [phone] | [place] [phone] | | | B | | | | | + +--------+ +--------+ + + | MANAGED MEDICARE | MANAGE | [id number] | Medica | | | | OTHER | D | | re | | | | | MEDICA | | | | | | | RE | | | | | | | OTHER | | | | | + +--------+ +--------+ + + + +--------+ +--------+ + + | Guarantor Name | Accoun | Relation to | Date | Phone | Billing Address | | | t Type | Patient | of | | | | | | | | | | + +--------+ +--------+ + + | SHANNON MOLINA | Person | Self [birth year] Home: | | | | al/Fam | | 1941 | [phone] | [place] [address] | | | [place] | | | [phone] | | + +--------+ +--------+ + + Advance Directives Patient has advance directives. For more information, please contact:[email or web address] [place] [address]
[2017-07-26] MEDS ORDERED: NICOTINE PATCH1 EAC1 TD (08:49)
[2017-07-26] MEDS ORDERED: COUMADIN2.5 MG PO (09:09)
[2017-07-26] MEDS ORDERED: OXYCODONE-ACET1 EAC1 PO (09:10)
[2017-07-26] MEDS ORDERED: LORAZEPAM1 MG PO (09:10)
[2017-07-26] MEDS ORDERED: SONATA5 MG PO (14:16)
[2017-07-26] MEDS ORDERED: ZALEPLON5 MG PO (14:16)
[2017-07-26] MEDS ORDERED: OLANZAPINE ODT10 MG PO (14:16)
[2017-07-26] MEDS ORDERED: TORSEMIDE5 MG PO (16:15)
== END 2017-07-26 14:20 | disposition home or self-care (01) | DRG 70 ==
LOC: MS 09:30
PROVIDERS: ADMIT Internal Medicine
DX: G93.41 Metabolic encephalopathy (principal); J96.91 Respiratory failure, unspecified with hypoxia; I48.92 Unspecified atrial flutter; I50.32 Chronic diastolic (congestive) heart failure; J96.12 Chronic respiratory failure with hypercapnia; J96.11 Chronic respiratory failure with hypoxia; R53.81 Other malaise; I11.0 Hypertensive heart disease with heart failure; J44.9 Chronic obstructive pulmonary disease, unspecified; E78.5 Hyperlipidemia, unspecified; E11.9 Type 2 diabetes mellitus without complications; Z79.4 Long term (current) use of insulin; G40.909 Epilepsy, unspecified, not intractable, without status epilepticus; F39 Unspecified mood [affective] disorder; G25.81 Restless legs syndrome; R41.0 Disorientation, unspecified; Z79.84 Long term (current) use of oral hypoglycemic drugs; Z66 Do not resuscitate
CPT/HCPCS: 36415; 85610; 94640; 94668; 94760; 97110; 97116; 97162; 97165; 97530; J2060

== ENCOUNTER 2017-07-30 01:39 | Emergency (ER) | payer MEDICARE, BC ==
[~2017-07-30] VITALS: Ht 170.2 cm; Wt 60.8 kg
[~2017-07-30 01:39] MED LIST changes: +COUMADIN2.5 MG PO; +LORAZEPAM1 MG PO; +NICOTINE PATCH1 EAC1 TD; +OLANZAPINE ODT10 MG PO; +SONATA5 MG PO; +TORSEMIDE5 MG PO
== END 2017-07-30 02:45 | disposition home or self-care (01) ==
LOC: ED 01:39
DX: R41.82 Altered mental status, unspecified (principal); E11.9 Type 2 diabetes mellitus without complications; J44.9 Chronic obstructive pulmonary disease, unspecified; Z90.49 Acquired absence of other specified parts of digestive tract; F17.200 Nicotine dependence, unspecified, uncomplicated; Z98.890 Other specified postprocedural states; Z88.0 Allergy status to penicillin; Z88.1 Allergy status to other antibiotic agents; Z88.2 Allergy status to sulfonamides; Z91.041 Radiographic dye allergy status; Z88.5 Allergy status to narcotic agent; Z79.01 Long term (current) use of anticoagulants; Z79.899 Other long term (current) drug therapy; Z79.84 Long term (current) use of oral hypoglycemic drugs
CPT/HCPCS: 99282

== ENCOUNTER 2017-07-31 20:43 | Emergency (ER) | payer MEDICARE, BC ==
[~2017-07-31] VITALS: Ht 170.2 cm; Wt 60.8 kg
== END 2017-07-31 23:07 | disposition home or self-care (01) ==
LOC: ED 20:43
DX: F03.90 Unspecified dementia, unspecified severity, without behavioral disturbance, psychotic disturbance, mood disturbance, and anxiety (principal); J44.9 Chronic obstructive pulmonary disease, unspecified; E11.9 Type 2 diabetes mellitus without complications; F17.200 Nicotine dependence, unspecified, uncomplicated; Z88.0 Allergy status to penicillin; Z88.8 Allergy status to other drugs, medicaments and biological substances; Z88.1 Allergy status to other antibiotic agents; Z88.5 Allergy status to narcotic agent; Z79.899 Other long term (current) drug therapy; Z79.01 Long term (current) use of anticoagulants; Z91.041 Radiographic dye allergy status; Z88.2 Allergy status to sulfonamides; Z79.891 Long term (current) use of opiate analgesic
CPT/HCPCS: 99283

== ENCOUNTER 2017-08-04 03:08 | Observation (INO) | payer MEDICARE, BC ==
[~2017-08-04] VITALS: Ht 170.2 cm; Wt 63.3 kg
[2017-08-04] MEDS ORDERED: ZYPREXA10 MG PO (04:24)
[2017-08-04] MEDS ORDERED: PERCOCET 5-3251 EACH PO (04:25)
[2017-08-04] MEDS ORDERED: CARTIA XT120 MG PO (04:28)
[2017-08-04] MEDS ORDERED: METOLAZONE5 MG PO (04:30)
--- NOTE | 2017-08-04 06:06 | NUR ---
76YR OLD WOMAN ADMITTED FROM ER VIA STRETCHE TO ROOM 110, 4 PERSON ASSIST TO SLIDE OVER TO BED. PT WILL OPEN HER EYES TO NAME, CONFUSED TO DATE TIME SITUATION." KEEPS ASKING FOR US TO START THE CAR AND TURN ON HEATER." WILL NOT ATTEMPT TO FOLLOW INSTRUCTION. WARM BLANKET PLACED ON PT, BED ALARM FOR HER SAFETY. ORDERS NOTED.
--- NOTE | 2017-08-04 07:30 | NUR ---
PATIENT CURRENTLY SLEEPING. PATIENT RR EVEN AND UNLABORED. CURRENTLY WEARING OXY MASK. REPORT GIVEN FROM DERRICK LOVE.
--- NOTE | 2017-08-04 08:19 | NUR ---
faribaeint is in bed, she is eating breakfast,
--- NOTE | 2017-08-04 08:20 | NUR ---
Patient's medications reconciled using med list and discharge orders from recent visit. Most recent warfarin dosing is 5mg Saturday & Saturday and 2.5mg all other days.
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
--- NOTE | 2017-08-04 09:51 | NUR ---
WENT IN TO DO VITAL SIGNS, PATEINT WAS VISITING WITH HER , SHE IS IN BED, NURSE ADMINISTERED MEDICATIONS.
--- NOTE | 2017-08-04 10:19 | NUR ---
AMBULATED IN [place] WITH PATIENT. PATIENT TOLERATED STBY ASSIST WITH WALKER. OXYGEN IN PLACE. SAT IN CHAIR AFTER WALKER. PATIENTS IN ROOM. FOLLOWED US WITH WALK AND HAS BEEN TALKING WITH PATIENT IN ROOM.
--- NOTE | 2017-08-04 10:20 | NUR ---
PATIENT CALLED TO MOVE FROM CHAIR OT BED. STATING THAT SHE IS NOT TOLERATING CHAIR AT THIS TIME. ASSISTED TO BED. BED ALARM SET. RT IN ROOM FOR BREATHING TREATMENT.
--- NOTE | 2017-08-04 10:27 | NUR ---
PATIENT TOOK MORNING MEDICATIONS WELL. CURRENTLY IN ROOM
--- NOTE | 2017-08-04 11:07 | NUR ---
assisted to the br. patient was calling out for help. patient assisted to to the br. stating that her r ribs were hurting. saying " good lord i am sore". 1 tab oxy given per request of pain medication from patient. bed alarm placed back on once to bed.
--- NOTE | 2017-08-04 12:30 | NUR ---
patient tolerated 100 percent of lunch. patient stating no other needs at this time, and that she would like to take a nap. planned for a walk after nap. patient agreed.
--- NOTE | 2017-08-04 13:29 | NUR ---
patient sleeping at this time.
--- NOTE | 2017-08-04 13:35 | NUR ---
WOKE PATIENT UP FROM SLEEP. PATIENT GETTING AGGITATED WHEN ATTEMPTING TO WAKE. ASKED PATIENT IF SHE COULD TAKE HER LASIX. PATIENT SEEMED ANNOYED WITH ME BUT TOOK THE LASIX. IN ROOM FOR A SHORT VISIT, AND LEFT AFTER 10 MINUTES OF VISITING WITH PATIENT.
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
--- NOTE | 2017-08-04 15:00 | NUR ---
PATIENT ATTEMPTING TO GET OUT OF BED. ASSISTED BY RADHA GUTHRIE TO THE BR. PATIENT THEN STARTED TAKING OFF ALL OF HER CLOTHING. ATTEMPTED TO ASSIST BACK TO BED WITH A TWO PERSON ASSIST. PATIENT STATED TO GET AGITATED. STATING THAT SHE WAS GOING HOME " GET OUT OF MY WAY" DEMANDING THAT SHE PUT HER CLOTHES ON AND THAT SHE WANTED HER PURSE. PATIENT ASSISTED INTO HER OWN CLOTHING. PATIENT WAS DEMANDING HER PURSE AND STATED THAT SHE WANTED TO KNOW WHERE THE FRONT DOOR WAS LOCATED. PATIENT TOOK OFF HER OXYGEN AND STARTED USING HER WALKER TO AMBULATE OUT OF HER ROOM. TALKED PATIENT INTO USING HER OXYGEN. PATIENT STARTED AMBULATING IN [place]. YELLING, " TELL ME WHERE THE FRONT DOOR IS AT" DR. PATTON ON THE FLOOR TO WITNESS EVENT. PATIENT ATTEMPTING TO GET INTO 109 ( WHERE ANOTHER PATIENT WAS LOCATED. CALLED FOR HELP FROM STAFF. DR. PATTON, CHARGE NURSE, AND OTHER CNAS USED TO SAFELY HELP PATIENT BACK TO ROOM. ONCE IN ROOM PATIENT SAT IN CHAIR. REMAINING VERY WORKED UP. BREATHING TREATMENT GIVEN. PATIENT FINALLY AGREEING TO GET BACK TO BED. ASSISTED TO BED. BED ALARM IN PLACE.
--- NOTE | 2017-08-04 15:28 | NUR ---
Flakita had a very large confused episode in which she was adamant about leaving the hospital and finding her vehicle. We were able to convince patient to go back to room and sit in chair. Eventually patient was willing to get back into bed. Patient is now dressed in her own clothes. Was in the patient's room for appromately 1 hour.
--- NOTE | 2017-08-04 15:34 | NUR ---
new order per dr. saldaña. given with a sip of coke. patient remains aggitated. demanding to go to her car. attempting to call on the phone, and yelling out. bed alarm in place. monitoring at nursing station.
--- NOTE | 2017-08-04 16:34 | NUR ---
patient currently resting. patient eyes closed. hob elevated. patient rr even and unlabored. currently has her oxygen in place. bed alarm on. current open. monitoring patient at this time.
--- NOTE | 2017-08-04 17:03 | NUR ---
patient has dementia. needs bed alarm at all times. needing one assist with walker when ambulating. patient can get violent. was very upset this afternoon because she wanted to go home. medication changes were made. since evening medicatons were given patient has been resting in bed. patient has no iv. regular diet. taking at home medications. currently on her home dose of oxygen which is 3l per nc. sating 90's. voiding well. refused shower today. has been in and out. patient is only oriented to self majority of the time. can become very agitated at times.
--- NOTE | 2017-08-04 17:38 | NUR ---
patient sat up in bed. eating dinner. took medications well. cooperative at this time. vitas taken. eating well.
--- NOTE | 2017-08-04 18:22 | NUR ---
PATIENT TOLERATED DINNER WELL. EATING 100 PERCENT. REQUESTING DESSERT. ASSISTED TO THE BR. 1 ASSIST WITH WALKER. PATIENT BEING PLEASANT AND FOLLOWING COMMAND AT THIS TIME.
--- NOTE | 2017-08-04 19:39 | NUR ---
pt c/o pain in her r groin 03/25. pt states it is a sore feeling. She would also like to stand beside her bed for awhile. Continuous Mining Machine Coal Miner assisting pt. pain medication administered.
--- NOTE | 2017-08-04 19:51 | NUR ---
PT IN BED, KNOWS WHERE SHE IS, SAYS SHE IS READY TO CLIMB THE [place]AGOSO. WILL HAVE HER GET OUT OF BED AND STRETCH. CURRENTY PAIN IS SO-SO SHE SAYS. DOWN SOME, HAD A PRN PAIN MED PRIOR TO THIS NURSE COMING INTO ROOM.
--- NOTE | 2017-08-04 21:54 | NUR ---
PT WOKE FOR MEDICATIONS. ASKED WHAT TIME IT WAS AND CLOSED EYES. PRIOR TO THIS TIME, SUPERVISOR FISH PROCESSING TOOK PT TO BATHROOM. BED ALARM ON, CALL LIGHT WITHIN REACH.
--- NOTE | 2017-08-04 23:27 | NUR ---
PT LAYING ON HER LEFT SIDE, O2 IN PLACE AT 3L, EYES CLOSED, RESP EVEN AND UNLABORED.
--- NOTE | 2017-08-05 00:40 | NUR ---
PT CALLED OUT FOR ASSISTANCE TO BATHROOM. ONE PERSON SBA WITH FWW TO AMB INTO BATHROOM TO VOID 400ML YELLOW URINE. COOPERATIVE AND EASILY REDIRECTED. CONFUSED TO DATE, TIME AND SITUATION. BACK TO BED WITH WARM BLANKET. O2 3L/NC. BED ALARM IS ACTIVE FOR PT SAFETY.
--- NOTE | 2017-08-05 01:09 | NUR ---
PT CALLING OUT FOR HELP, C/O R HIP PAIN. TYLENOL GIVEN. REPOSITIONED FOR COMFORT. BED ALARM IS ACTIVE AND CALL LIGHT IS IN EASY REACH.
--- NOTE | 2017-08-05 02:06 | NUR ---
PT BECOMING INCREASING AGGITATED ASKING TO GO HOME AND WANTING HER . UNABLE TO REDIRECT AT THIS TIME, REPLACER SITTING WITH PT FOR HER SAFETY. CALL WAS PLACED TO DR PATTON AND I RECIEVED ORDER TO GIVE ADDITIONAL DOSE OF THORAZINE 25MG PO NOW. MEDICATION WAS GIVEN. PT ATE CUP OF SHERBERT AND DRANK WATER.
--- NOTE | 2017-08-05 02:42 | NUR ---
PT IS AWAKE, CONT. TO REQUEST TO GO HOME, YELLING "I HAVE GOT TO GET OUT OF HERE" PORTFOLIO SPECIALIST SITTING AT BEDSIDE, TALKING WITH PT. REFUSING ANYTHING TO EAT OR DRINK AT THIS TIME. WILL MONITOR CLOSELY FOR HER SAFETY.
--- NOTE | 2017-08-05 03:15 | NUR ---
PT YELLING OUT AND RUBBING R HIP, STATING SHE NEEDS PAIN MEDICATION. PERCOCET GIVEN, ASSISTED TO REPOSITON FOR COMFORT. HUMAN RELATIONS PROFESSOR REMAINS IN ROOM FOR SAFETY AND COMFORT.
--- NOTE | 2017-08-05 04:00 | NUR ---
PT WITH EYES CLOSED, RESP EVEN AND UNLABORED, O2 NC @ 3 L. PT HAD BEEN QUITE VERBAL ABOUT WHAT SHE WANTED, BUT WAS UNAWARE OF WHERE SHE WAS, HAD BEEN YELLING FOR RICH, DEMANDING HE COME HELP HER AND BRING THE BOYS. CHARGE NURSE NOTIFIED DR. PATTON WHO ORDERED ANOTHER DOSE OF THORIZINE. PT HAD BEEN COMPLAINING OF HER RIGHT LEG HURTING, WAS MED PRIOR TO THIS NOTE WITH PRN PAIN MEDICATION WELL.
--- NOTE | 2017-08-05 04:21 | NUR ---
SAT WITH PT IN HER ROOM FOR ABOUT HR TO KEEP HER COMPANY. SHE WAS GETTING WORKED UP ABOUT WANTING TO GO HOME AND WANTING HER TO COME GET HER.
--- NOTE | 2017-08-05 06:17 | NUR ---
PT CURRENTLY WITH EYES CLOSED, RESP EVEN AND UNLABORED. EARLY IN SHIFT, PT WAS COOPERATIVE, TO BED BY CHOICE, USED CALL LIGHT COUPLE TIMES, APPROPRIATELY. CLOSE TO 0130, PT STARTED HOLLERING OUT WANTING HER . WASN'T AWARE OF WHERE SHE IS. VISITING PT OFTEN, TO REASSURE HER, [id number], SHE BEGAN GETTING AGITATED, DEMANDING TO GO HOME. DR. PATTON NOTIFIED, MED ORDER RECEIVED. PT HAD BEEN UP TO BATHROOM BY CHOICE SEVERAL TIMES PRIOR TO THE AGITATION, WELL MEDICATED FOR PAIN SHE COMPLAINS OF HER RIGHT LEG HURTING.
--- NOTE | 2017-08-05 06:46 | NUR ---
PT LAYING ON HER BACK, EYES CLOSED, RESP EVEN AND UNLABORED. O2 PER NC @ 3L IN PLACE. BED ALARM ON.
--- NOTE | 2017-08-05 07:10 | NUR ---
RECIEVED REPORT FROM KATE GILMORE. PT SLEEPING SOUNDLY, HAD PULLED O2 NC OFF, REPLACED. PT STIRRED, BUT DID NOT AROUSE. PT ON 3L O2 VIA NC.
--- NOTE | 2017-08-05 08:31 | NUR ---
PT UP IN RECLINER FOR BREAKFAST. ATE MINIMAL BREAKFAST, THEN BACK TO BED PER HER REQUEST. PT ENCOURAGED TO DRINK GLUCERNA SUPPLEMENT DRINK, PROVIEDED WITH ONE MIXED WITH ICE CREAM PER HER REQUEST. PT SIPPING THIS NOW. PT CALM, BUT DISORIENTED TO PLACE, EVENTS, SURROUNDINGS, DATE. IS ABLE TO GIVE HER NAME AND . DENIED PAIN, DENIED NAUSEA. ON 3L O2 VIA NC, WHICH IS HER BASELINE AT HOME. GAVE AM MEDICATIONS.
--- NOTE | 2017-08-05 08:58 | NUR ---
PT HAS NO IV ACCESS, CALLED DR. PATTON, ASKED IF HE WAS AWARE OF THIS. DR. PATTON STATED THAT HE IS AWARE OF THIS, GAVE ORDER THAT IT IS OK TO LEAVE IV OUT.
--- NOTE | 2017-08-05 09:33 | NUR ---
GOT PT UP TO BEDSIDE COMMODE, SHE HAS CALLED SEVERAL TIMES THIS MORNING. GOT HER FRESH COFFEE AND ORANGE JUICE FOR HER BREAKFAST THIS MORNING, SHE CALLED ONCE JUST TO SEE WHAT THE BUTTON DID.
--- NOTE | 2017-08-05 10:23 | NUR ---
SPOKE WITH RESPIRATORY THERAPIST, WHO REPORTED THAT PT WAS SATURATING IN LOW 80s ON 3L O2, SO PT WAS INCREASED TO 4.5L VIA NC TO MAINTAIN OXYGEN SATURATION LEVEL AT 90% OR GREATER. NOTIFIED DR. PATTON OF THIS. ALSO NOTIFIED DR. PATTON THAT WHEN ASSISTED LIVING ASSOCIATE CHECKED PT'S VS, PT'S OXYGEN SATURATION WAS IN 70s WHEN ASLEEP, AND THAT ASSISTED LIVING ASSOCIATE AROUSED PT AND ENCOURAGED DEEP BREATHING, AND PT'S OXYGEN SATURATION LEVEL INCREASED TO 90%.
--- NOTE | 2017-08-05 11:27 | NUR ---
PT C/O 12/24 RIGHT HIP PAIN. GAVE PERCOCET 5/325 MG 1 TAB PO PRN. PT STATED THAT SHE WANTS TO GO HOME, STATED THAT SHE WANTED TO CALL HER HOME TO SEE IF ANYONE WAS AVAILABLE TO COME PICK HER UP. EDUCATED PT THAT DR. PATTON HAD NOT PLACED A DISCHARGE ORDER FOR HER AT THIS TIME. PT REPLIED "CHASE, CHASE, CHASE! I JUST WANT TO GET OUT OF HERE!". PROVIDED REASSURANCE, AND PT CALMED DOWN. PT IN BED, BED ALARM ON.
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
--- NOTE | 2017-08-05 12:12 | NUR ---
PT LAYING IN BED, AWAKE, NOT TOO ALERT OR ORIENTED. SHE TOLD ME THAT SHE DIDN'T WANT ANY COMPANY, BUT THAT SHE COULD USE ALL THE PRAYER HELP SHE COULD GET. SHE DIDNOT WANT ME TO PRAY WITH HER HOWEVER. WILL PRAY AND FOLLOW NEEDED
--- NOTE | 2017-08-05 12:14 | NUR ---
REFUSED SHOWER BUT TOOK A BED BATH INSTEAD.
--- NOTE | 2017-08-05 12:15 | NUR ---
NOW EATING LUNCH.
--- NOTE | 2017-08-05 12:16 | NUR ---
WENT TO THE BATHROOM CHANGED LINENS SET UP IN CHAIR FOR BREAKFAST ALARM ON THAN SHE WANTED TO GO BACK TO BED.
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
--- NOTE | 2017-08-05 13:13 | NUR ---
PT UP TO BATHROOM WITH STANDBY ASSIST. PT BACK TO BED.
--- NOTE | 2017-08-05 13:23 | NUR ---
PT GIVEN SCHEDULED MEDICATIONS. DENIED PAIN, DENIED NEEDS. THIS RN ENCOURAGE PT TO DRINK WATER, AND TO DEEP BREATH AND COUGH. PT DRANK SOME WATER, AND DID DEEP BREATH AND COUGH ONCE.
--- NOTE | 2017-08-05 13:32 | NUR ---
INR today = 1.5. Give 7.5mg today, instead of home dose of 5mg. Continue to monitor
--- NOTE | 2017-08-05 14:31 | NUR ---
PT AMBULATED IN HALLS WITH DANNY, PHYSICAL THERAPIST, AND THIS RN. CONFUSED, AGITATED, BUT DID TOLERATED AMBULATION. OXYGEN SATURATION LEVEL 89% ONCE [address] "LOOP" ON 5L VIA NC. PT DENIED SHORTNESS OF BREATH.
--- NOTE | 2017-08-05 15:39 | NUR ---
[facility] CONTACTED [facility] AND SPOKE WITH GAEL. SHE STATES PATIENTS NEVER FINISHED THE PROOFS FOR THE APPLICATION FOR MEDICAID. [facility] WILL CALL AND VISIT WITH REGARDING HELPING HIM FINISH THIS PAPERWORK. SPOKE WITH JAIRO MONTENEGR[employer] IN REGARDS TO PATIENTS SITUATION AT HOME. SHE STATES SHE WILL COME LATER TODAY OR IN THE MORNING AND EVALUATE PATIENT.
--- NOTE | 2017-08-05 15:47 | NUR ---
PATIENT UP TO BATHROOM AND SITTING UP IN CHAIR WITH FEET ELEVATED. CHAIR ALARM ON. CALL BUTTON IN LAP. ROOM PICKED UP. NO OTHER NEEDS AT THIS TIME.
--- NOTE | 2017-08-05 18:09 | NUR ---
PT UP TO BATHROOM, HAD ONE SMALL LOOSE BM, AND VOIDED 300 CC URINE. NOW IN BED, HOB ELEVATED, PT VISITING WITH PT.
--- NOTE | 2017-08-05 18:33 | NUR ---
PT ALERT, BUT DISORIENTED TO PLACE, SURROUNDINGS, DATE, EVENTS. REORIENTED NEEDED. PT HAS HAD SEVERAL STOOLS THIS SHIFT, AND VOIDED QUANTITY SUFFICIENT URINE. USES FWW WITH MINIMAL 1 PERSON ASSIST. IS ON 4.5L O2 TO MAINTAIN OXYGEN SATURATION LEVEL AT 90% OR GREATER. ON ADA DIET, APETITE FAIR TO POOR. PT ENCOURAGED TO INCREASE PO INTAKE, AND OFFERED GLUCERNAS. PT DRANK 1 GLUCERNA THIS AM. PT HAS NO IV ACCESS, DR. PATTON AWARE, GAVE ORDER THAT IT IS OK TO HAVE NO IV ACCESS.
--- NOTE | 2017-08-05 19:59 | NUR ---
PT COOP WITH ASSESSMENT, O2 AT 4.5L/NC, CONFUSED, EASIY REDIRECTABE AT THIS TIME, LEGS ELEVATED, HIGH FALL RISK PROTOCOL IN PLACE. BED ALARM AND RAILS UP. NO C/O PAIN,
--- NOTE | 2017-08-05 20:21 | NUR ---
PT RAMÍREZ FREEMAN. SAYING SHE HURTS. MED WITH PO PAIN MED, FRESH ICE WATER, COVERED UP WITH BLANKETS BECAUSE SHE COMPLAINED OF COLD. SAID SHE WAS GOING TO SLEEP. BED ALARM ON CA LIGHT IN PLACE
--- NOTE | 2017-08-05 21:45 | NUR ---
PT TRYING TO GET OUT OF BED. UPSET SHE CAN'T LEAVE. REDIRECTED BACK TO BED.
--- NOTE | 2017-08-06 01:28 | NUR ---
medicated with tylenol 500 mg po c/o leg pain. machine stuffer in room with pt as she is getting more verbally aggressive, still easily reditected
--- NOTE | 2017-08-06 02:33 | NUR ---
pt awake, calmer, med effective. no further c/o pain, O2 in place 4.5L/NC, no resp distress noted. high fall risk precautions in place. INTERNET MARKETING CONSULTANT in room with pt
--- NOTE | 2017-08-06 04:18 | NUR ---
pt continues to be confused, belligerent at times, verbally angry, trying to get out of bed, bed alarm on, rails up. high fall risk protocol in place. easiy redirectable. Keeps taking O2 off nares, was medicated with percocet x1 and tylenol x1. per c/o pain, effective. Currently awake, not very redirectabe at this time. trying to crawl out of bed., nurse in room with pt for 50 minutes now
--- NOTE | 2017-08-06 05:40 | NUR ---
ASSISTED TO BATHROOM, BACK TO EDGE OF BED, VITALS DONE, LAB HERE DRAWING BLOOD. HAVE BEEN IN WITH PT FOR PAST 30 MIN.
--- NOTE | 2017-08-06 07:16 | NUR ---
PT AWAKE, AMBULATED TO BATHROOM THEN BACK TO BED WITH FWW WITH ASSIST FROM JERRI ALDRICH. RECIEVED BEDSIDE REPORT FROM KATE CARIAS. DURING REPORT, JERRI ALDRICH REPORTED THAT PT HAS BEEN MAKING STATEMENTS ABOUT WANTING TO COMMIT SUICIDE. REPORTED THAT PT STATED THAT [place]. REPORTED THE ABOVE NOTED TO DR. PATTON VIA TELEPHONE.
--- NOTE | 2017-08-06 07:23 | NUR ---
PT WAS TALKING ABOUT WANTING TO COMMIT SUICIDE SO HER FAMILY DIDN'T HAVE TO WATCH HER SLOWLY. I INFORMED THE PT DID ANOTHER RN THAT SHE WAS NOT ACTIVELY DYING. PT STATED SHE WANTED ME TO DR[place] SO SHE COU[place] SHOOT HERSELF. KATE CERDA, AND ARETHA RN, ARE BOTH AWARE OF WHAT THE PT TOLD ME. DR. PATTON IS AWARE WELL.
--- NOTE | 2017-08-06 08:22 | NUR ---
PATIENT ASLEEP. ALL OF CARE TEAM AGREES TO LET HER SLEEP.
--- NOTE | 2017-08-06 10:25 | NUR ---
TWO NURSES IN ROOM. ASKED ME TO STEP OUT.
--- NOTE | 2017-08-06 10:27 | NUR ---
PT SLEEPING, AROUSED TO VOICE. UP TO BATHROOM WITH 1 PERSON ASSIST WITH FWW. PT THEN BACK TO BED, WITH HOB ELEVATED. ATTEMPTED TO GIVE PT HER SCHEDULED PO MEDICATIONS. PT TOOK THORAZINE 50 MG PO. SHE THEN REQUESTED MORE WATER. GAVE PT FULL GLASS OF WATER. PT REMOVED LID AND DUMPED WATER ONTO BED. SHE STATED THAT SHE WAS NOT GOING TO TAKE ANY OF HER MEDICATIONS. ATTEMPTED TO EDUCATE PT ON NEED TO TAKE MEDICATIONS, WHICH INCLUDED SCHEDULED CARDIZEM AND METOPROLOL. PT STATED THAT SHE IS NOT GOING TO TAKE ANY MEDICATIONS. PT VERBALLY AGRESSIVE, BUT DID ALLOW THIS RN AND STUDENT RN ASSIST HER IN TRANSFERING TO RECLINER. PT NOW SITTING UP IN RECLINER. ATTEMPTED TO ASSESS PT, PT ALERT, DISORIENTED TO ALL EXCEPT SELF, AND DID HAVE DIFFICULTY REMEMBERING HER LAST NAME. CHAIR ALARM ON. ON ATTEMPTING TO ASSESS PT, PT REFUSED TO ALLOW THIS RN TO ASSESS HER. WILL ATTEMPT AGAIN LATER.
--- NOTE | 2017-08-06 10:49 | NUR ---
SHANNON REFUSED A SHOWER. GOT PATIENT SET UP FOR BREAKFAST AND REWARMED IT.
--- NOTE | 2017-08-06 11:06 | NUR ---
TOOK PATIENT'S TRAY OUT, PATIENT REQUESTED A VANILLA PUDDING. GOT PATIENT A SUGAR FREE VANILLA PUDDING.
--- NOTE | 2017-08-06 12:35 | NUR ---
CARE CONFERENCE PRESENT: DR PATTON, PATIENCE [place], AND HOSPICE, [facility] HOSPICE JOB TRAINING SPECIALISTJAIRO TRIAL COURT JUSTICE, AND MYSELF. DR PATTON HAD CALLED PT SON ROWENA AND TALKED WITH HIM ABOUT PT CONDITION, MR MOLINA WAS NOT AVAILABLE VIA PHONE. HE TALKED ABOUT HER CLINICAL STATUS, GOALS OF CARE WERE DISCUSSED WITH SON ROWENA VIA TELEPHONE AND LATER WITH MR MOLINA IN PERSON WITH MYSELF THERE A WITNESS AND THEY BOTH CONCUR THAT THEY WOULD LIKE TO HAVE HER PLACED INTO A COMFORT CARE SITUATION WITH CHANGING HER STATUS TO SWING BED. POSS HOSPICE IN THE FUTURE. FAMILY IS COMFORTABLE WITH THIS DECISION.
--- NOTE | 2017-08-11 11:17 | DS ---
[facility] [address], [place] [address] Signed ADMISSION DATE: 08/04/2017 DISCHARGE DATE: 08/06/2017 PRINCIPAL DIAGNOSIS AT THE TIME OF ADMISSION: Acute metabolic encephalopathy. PRINCIPAL DIAGNOSIS AT THE TIME OF DISCHARGE: Progressive metabolic encephalopathy manifesting as progressive intractable delirium in the background of cognitive impairment/dementia. ADDITIONAL DIAGNOSES: 1. Chronic diastolic heart failure. 2. Paroxysmal atrial fibrillation. 3. Chronic obstructive pulmonary disease with probable interstitial lung changes. 4. Chronic respiratory failure with hypoxia and hypercapnia. 5. Type 2 diabetes mellitus. 6. Seizure disorder. CONSULTANTS: None. PROCEDURES: None. HOSPITAL COURSE: Please refer to the admission history and physical dictated by me. The patient is a 76-year-old lady, who is well known to the hospitalist service. The patient was hospitalized between the July 05, 2017 and July 26, 2017, for both acute care and transitional care. The patient had been diagnosed with pneumonia, decompensated respiratory failure, and unfortunately, the patient developed delirium. Delirium was progressive, severe, and associated with significant agitation and disorientation with confusion. Despite resolution of the frustrating medical illness, the patient continued to have worsening delirium. Accordingly, the patient was started on antipsychotic therapy and was transitioned initially to a Swing Bed Program. The patient was eventually discharged home on July 26, 2017, to the care of the family with continued antipsychotic therapy with intermittent benzodiazepines. However, the patient continued to progress at home with worsening confusion, agitation, and delirium and this led to recurrent ER visits and finally on the August 04, the patient was placed under observation. Initial diagnostic test did not reveal any acute medial illness to explain the patient's symptoms. Furthermore, we discontinued the previously started benzodiazepines and antipsychotics and this did not result any Electronically Signed By: ELDON PATTON MD 08/11/17 1117 PATIENT NAME: SHANNON MARSH DISCHARGE SUMMARY DATE OF : 42 PHYSICIAN: ELDON PATTON MD REPORT #: [id number] REPORT IS CONFIDENTIAL AND NOT TO BE RELEASED WITHOUT AUTHORIZATION [facility] [address], [place] [address] Signed significant improvement. The patient was then started on chlorpromazine and the dose was gradually optimized and despite starting the chlorpromazine, the patient continued to have agitation. The patient was noted to have increasing oxygen needs up to 5 L. Given the concerns of the patient's chronic medical problems chiefly, the respiratory failure may decompensate further, goals of care discussion was carried out with the patient's in person and also the patient's son, Mr. Nelson Marsh via telephone. Given the clinical deterioration, informed decision was made by the patient's family to transition to comfort care measures to optimize symptom control of delirium with the understanding that further use of antipsychotics and other medications, may result in decompensation of respiratory status. Hence, with this understanding, the patient has been transitioned to comfort care measures. She has there upon been discharged from our observation hospitalization to our transitional care program for continued treatment and optimization of intractable delirium. PHYSICAL EXAMINATION: At the time of discharge: GENERAL: The patient appears to be in no moderate distress, confused. NEUROLOGIC: No motor deficits. LUNGS: Bilateral coarse crackles, which is a chronic finding for the patient. HEART: Regular heart sounds. ABDOMEN: Soft, nontender. MEDICATIONS: At the time of discharge include: 1. Diltiazem 120 mg p.o. daily. 2. Metoprolol 100 mg b.i.d. 3. Budesonide 0.5 mg inhalation twice a day. 4. Senokot with docusate 2 tablets twice a day with meals. 5. Lasix or furosemide 40 mg twice a day, morning and afternoon. 6. Dulcolax suppository 10 mg as needed. 7. Promethazine suppository 25 mg every 6 hours as needed. 8. Percocet one tablet every 4 hours as needed for pain. 9. Ondansetron 8 mg every 6 hours as needed for nausea or vomiting. 10. Lorazepam 1 mg every hour as needed for agitation, not controlled by Thorazine. 11. Chlorpromazine or Thorazine 50 to 100 mg every 6 hours as needed for agitation. 12. Artificial Tears. 13. Albuterol/ipratropium inhalation 4 times a day and every 2 hours as needed. 14. Keppra 1000 mg twice a day. 15. Thorazine 200 mg at bedtime. 16. Metformin 1000 mg twice a day with meals. 17. Chlorpromazine 100 mg twice a day in the morning and afternoon in addition to the 200 mg bedtime dose. Electronically Signed By: ELDON PATTON MD 08/11/17 1117 PATIENT NAME: SHANNON MARSH DISCHARGE SUMMARY DATE OF : 42 PHYSICIAN: ELDON PATTON MD REPORT #: [id number] REPORT IS CONFIDENTIAL AND NOT TO BE RELEASED WITHOUT AUTHORIZATION [address] [address] Signed DISCHARGE PLAN: ACTIVITIES: As tolerated. DIET: Diabetic diet. FOLLOWUP CARE: Pending disposition from Swing Bed status. ISSUES TO BE ADDRESSED AT FOLLOWUP: Continued optimization of pharmacotherapy and other behavioral techniques for management of delirium. TIME SPENT: Time spent on the day of discharge has been 36 minutes. Eldon Patton MD LVR/MODL /[id number] cc: Darien Peña MD Electronically Signed By: ELDON PATTON MD 08/11/17 1117 PATIENT NAME: JONNATHAN MARSHARMAND Coronado DISCHARGE SUMMARY DATE OF : 42 PHYSICIAN: ELDON PATTON MD REPORT #: [id number] REPORT IS CONFIDENTIAL AND NOT TO BE RELEASED WITHOUT AUTHORIZATION
== END 2017-08-06 11:15 | disposition swing bed (61) ==
LOC: ED 03:08 → MS 03:10
PROVIDERS: ADMIT Internal Medicine
DX: G93.41 Metabolic encephalopathy (principal); F03.90 Unspecified dementia, unspecified severity, without behavioral disturbance, psychotic disturbance, mood disturbance, and anxiety; F05 Delirium due to known physiological condition; F17.200 Nicotine dependence, unspecified, uncomplicated; J44.9 Chronic obstructive pulmonary disease, unspecified; E11.9 Type 2 diabetes mellitus without complications; G25.81 Restless legs syndrome; J96.12 Chronic respiratory failure with hypercapnia; J96.11 Chronic respiratory failure with hypoxia; G40.909 Epilepsy, unspecified, not intractable, without status epilepticus; I48.0 Paroxysmal atrial fibrillation; I50.32 Chronic diastolic (congestive) heart failure; Z66 Do not resuscitate; Z79.01 Long term (current) use of anticoagulants; Z79.84 Long term (current) use of oral hypoglycemic drugs; Z79.891 Long term (current) use of opiate analgesic; Z79.51 Long term (current) use of inhaled steroids; Z79.899 Other long term (current) drug therapy; Z88.5 Allergy status to narcotic agent; Z88.0 Allergy status to penicillin; Z88.2 Allergy status to sulfonamides; Z88.8 Allergy status to other drugs, medicaments and biological substances; Z88.3 Allergy status to other anti-infective agents; Z91.041 Radiographic dye allergy status
CPT/HCPCS: 36415; 36600; 80053; 81001; 82803; 85025; 85610; 85730; 94640; 94760; 97116; 97162; 99285; G0378; G8978; G8979; G8980; Q0161

== ENCOUNTER 2017-08-06 11:15 | Inpatient (IN) | payer MEDICARE, BC ==
[~2017-08-06] VITALS: Ht 170.2 cm; Wt 58.6 kg
[~2017-08-06 11:15] MED LIST changes: +CARTIA XT120 MG PO; +METOLAZONE5 MG PO; +ZYPREXA10 MG PO
[2017-08-16] MEDS ORDERED: IPRAT-ALBUT 0.5-3 ML INH ×2 (13:37)
[2017-08-16] MEDS ORDERED: MAPAP500 M1 PO (13:42)
[2017-08-16] MEDS ORDERED: HALOPERIDOL2 MG/1 ML PO (13:43)
[2017-08-16] MEDS ORDERED: LORAZEPAM INT2 MG/ML SL (13:45)
[2017-08-16] MEDS ORDERED: FENTANYL1 EAC4 TD (13:45)
[2017-08-16] MEDS ORDERED: MORPHINE S20 MG/5 ML PO (13:45)
[2017-08-19] MEDS ORDERED: HALOPERIDOL2 MG/1 ML PO ×2 (10:44→10:45)
== END 2017-08-19 12:30 | DRG 70 ==
LOC: MS 11:15
PROVIDERS: ADMIT Internal Medicine
DX: G93.41 Metabolic encephalopathy (principal); J96.22 Acute and chronic respiratory failure with hypercapnia; Z51.5 Encounter for palliative care; J96.21 Acute and chronic respiratory failure with hypoxia; I50.32 Chronic diastolic (congestive) heart failure; F03.90 Unspecified dementia, unspecified severity, without behavioral disturbance, psychotic disturbance, mood disturbance, and anxiety; I48.0 Paroxysmal atrial fibrillation; J44.9 Chronic obstructive pulmonary disease, unspecified; E11.9 Type 2 diabetes mellitus without complications; G40.909 Epilepsy, unspecified, not intractable, without status epilepticus; Z66 Do not resuscitate
CPT/HCPCS: 36415; 80048; 85025; 85610; 94640; 94760; J1630; Q0161